=== PATIENT | male | born 1930 | race Two or more races ===

== ENCOUNTER 2017-06-18 06:43 | Inpatient (IN) | payer MEDICARE, OTHER ==
[~2017-06-18] VITALS: Ht 172.7 cm; Wt 83.5 kg
--- NOTE | 2017-06-18 06:50 | NUR ---
PATIENT RECEIVED FROM EMS ([facility]) WITH ALTERED MENTAL STATUS. A/O X1 NOT ABLE TO MAKE NEEDS KNOWN. ACCORDING TO EMS THIS IS HIS BASELINE STILL. NO PAIN OR SOB NOTED UPON ASSESSMENT. BLOOD DRAW DONE. WILL CONTINUE TO MONITOR FOR ANY CHANGES
[2017-06-18 07:10] LABS: EOSINOPHILS # (AUTO) 0.4 /CMM (0.0-0.7); EOSINOPHILS % (AUTO) 3.8 % (0.0-6.0); HEMATOCRIT 41 % (39-51); HEMOGLOBIN 13.2 g/dL (13.5-17.5); LYMPHOCYTES # (AUTO) 0.7 /CMM (0.8-4.8); LYMPHOCYTES % (AUTO) 6.2 % (20.0-44.0); MEAN CORPUSCULAR HEMOGLOBIN 31 PG (26.0-33.0); MEAN CORPUSCULAR HGB CONC 32 g/dl (31.0-36.0); MEAN CORPUSCULAR VOLUME 95 fL (80-96); MONOCYTES # (AUTO) 0.2 /CMM (0.1-1.30); MONOCYTES % (AUTO) 2.2 % (2.0-12.0); NEUTROPHILS % (AUTO) 87.8 % (43.0-81.0); PLATELET COUNT (AUTO) 185 /CMM (150-450); RDW COEFFICIENT OF VARIATION 15.6 (11.5-15.0); RED BLOOD CELL COUNT(AUTO) 4.31 MIL/uL (4.5-6.0); WHITE BLOOD COUNT (AUTO) 11.4 K/uL (4.3-11.0)
--- NOTE | 2017-06-18 07:12 | NUR ---
PT LEFT FOR CAT SCAN
--- NOTE | 2017-06-18 07:23 | NUR ---
PATIENT RECEIVED BACK FROM CAT SCAN
[2017-06-18 07:28] LABS: INR 0.96 (0.87-1.13); SERUM AMMONIA 25 umol/L (11-32)
[2017-06-18 07:30] LABS: CALCIUM, SERUM 9.8 mg/dL (8.5-10.1); CARBON DIOXIDE 35 mmol/L (21-32); CHLORIDE 111 mmol/L (98-107); CREATININE 1.6 mg/dL (0.6-1.3); GLUCOSE 176 mg/dL (74-106); POTASSIUM 4.3 mmol/L (3.5-5.1); SODIUM SERUM 153 mmol/L (136-145); UREA NITROGEN, BLOOD 67 mg/dL (7-18)
--- NOTE | 2017-06-18 07:32 | NUR ---
REPORT GIVEN TO NAMITA
[2017-06-18 07:35] LABS: TROPONIN I 0.037 ng/mL (0.00-0.056)
[2017-06-18 07:38] LABS: ALANINE AMINOTRANSFERASE 23 U/L (12-78); ALBUMIN 2.7 g/dL (3.4-5.0); ALKALINE PHOSPHATASE 122 U/L (46-116); ASPARTATE AMINOTRANSFERASE 30 U/L (15-37); BILIRUBIN,DIRECT 0.1 mg/dL (0.0-0.2); BILIRUBIN,TOTAL 0.3 mg/dL (0.2-1.0); TOTAL PROTEIN, SERUM 8.8 g/dL (6.4-8.2)
[2017-06-18 07:40] LABS: ACETAMINOPHEN < 10 ug/ml (10-30); SALICYLATE 1.5 mg/dL (2.8-20.0)
[2017-06-18] MEDS ORDERED: ACET650S26 GT (07:45)
[2017-06-18] MEDS ORDERED: NA P133E RC (07:45)
[2017-06-18] MEDS ORDERED: NUT.237L30 GT (07:45)
[2017-06-18] MEDS ORDERED: POTA20LI4 GT (07:45)
[2017-06-18] MEDS ORDERED: MAGN400O6 GT (07:45)
[2017-06-18] MEDS ORDERED: BLOO-668 IN (07:45)
[2017-06-18] MEDS ORDERED: AMLO5TAB2 GT (07:45)
[2017-06-18] MEDS ORDERED: MULT1TAB11 GT (07:45)
[2017-06-18] MEDS ORDERED: BISA10SU8 RC (07:45)
[2017-06-18] MEDS ORDERED: INSU100V3 SQ (07:45)
[2017-06-18] MEDS ORDERED: ALLA266C2 TP (07:45)
[2017-06-18] MEDS ORDERED: FURO20TA4 GT (07:45)
[2017-06-18] MEDS ORDERED: LOSA25TA13 GT (07:45)
[2017-06-18] MEDS ORDERED: ASCO500S2 GT (07:45)
[2017-06-18] MEDS ORDERED: IV NS 0.9% 500 ML BAG IV ONE (08:00)
[2017-06-18 09:08] LABS: THYROID STIMULATING HORMONE 2.842 uIU/mL (0.358-3.74)
[2017-06-18 10:10] LABS: APPEARANCE,URINE DARK YELLOW (CLEAR); COLOR,URINE YELLOW (YELLOW)
[2017-06-18 10:11] LABS: BILIRUBIN,URINE NEGATIVE (NEGATIVE); BLOOD, URINE 2+ Ery/uL (NEGATIVE); KETONES,URINE NEGATIVE (NEGATIVE); LEUKOCYTE ESTERASE ,URINE 3+ (NEGATIVE); NITRITE, URINE NEGATIVE (NEGATIVE); PROTEIN,URINE 1+ mg/dl (NEGATIVE); UGLUCOSE NEGATIVE (NEGATIVE); UROBILINOGEN,URINE 0.2 EU/dL (0.2)
[2017-06-18 10:13] LABS: BACTERIA,URINE Few /HPF (None Seen); SQUAMOUS EPITHELIAL CELL,UR Few /HPF (None Seen); WBC,URINE TOO NUMEROUS TO COUN /HPF (0-3)
--- NOTE | 2017-06-18 10:20 | NUR ---
PANEL ON-CALL PAGED
[2017-06-18] MEDS ORDERED: CEFTRIAXONE 1GM BAG (ER ONLY) 1 GM/50 ML PIGGYBACK IV ONE (10:30)
--- NOTE | 2017-06-18 11:00 | NUR ---
PT TRANSPORTED TO TELE USING ACLS PROTOCOL
--- NOTE | 2017-06-18 11:46 | NUR ---
MS RN ADMITTING NOTES PT ADMITTED TO UNIT AT 1105H VIA GURNEY ACCOMPANIED BY NAMITA ER NURSE. TRANSFERRED TO BED GENTLY AND COMFORTABLY. HOB ELEVATED. ALERT AND ORIENTED X1, CONFUSED. ON ROOM AIR, BREATHING EVEN AND UNLABORED. 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 V/S TAKEN AND RECORDED. PHOTOS OF SKIN TAKEN AND FILED ON CHART. PT HAS IV ACCESS ON LEFT FA G#18 INTACT AND PATENT. PT NPO WITH G-TUBE IN PLACED AND PATENT FR#18, WILL RE-START G-TUBE FEEDING ON HIM. ASPIRATION PRECAUTIONS ENFORCED. PT WITH GARCIA CATHETER IN PLACED DRAINING CLOUDY YELLOW URINE TO BEDSIDE URINARY BAG. BED PLACED ON LOW, LOCKED POSITION WITH SIDE-RAILS UP X3. CALL LIGHT WITHIN REACH. ALL SAFETY PRECAUTIONS INITIATED. MD MADE AWARE OF ADMISSION. WILL CONTINUE TO MONITOR PT ACCORDINGLY.
[2017-06-18] MEDS ORDERED: ACETAMINOPHEN 325 MG TABLET PO PRN (13:00)
[2017-06-18] MEDS ORDERED: ACETAMINOPHEN 650 MG/20.3 ML UDC GT PRN (13:00)
[2017-06-18] MEDS ORDERED: BISACODYL SUPP (10 MG) 10 MG/SUPP.RECT SUPP.RECT RC PRN (13:00)
[2017-06-18] MEDS ORDERED: ZOLPIDEM TARTRATE 5 MG TABLET PO PRN (13:00)
[2017-06-18] MEDS ORDERED: MAGNESIUM HYDROXIDE 30 ML UDC PO PRN (13:00)
[2017-06-18] MEDS ORDERED: Z GUARD REMEDY 2 OZ OINT TP PRN (13:00)
[2017-06-18] MEDS ORDERED: INSULIN REGULAR, HUMAN 100 UNIT/ML 3 ML VIAL SQ PRN (13:00)
[2017-06-18] MEDS ORDERED: ONDANSETRON HCL/PF 4 MG/2 ML VIAL IVP PRN (13:00)
[2017-06-18] MEDS ORDERED: MAGNESIUM HYDROXIDE 30 ML UDC GT PRN (13:00)
[2017-06-18] MEDS ORDERED: IV NS 0.9% 1,000 ML IV ONE (13:00)
[2017-06-18] MEDS ORDERED: ZOLPIDEM TARTRATE 5 MG TABLET GT PRN (13:00)
[2017-06-18] MEDS ORDERED: HYDROCODONE/APAP 5/325MG 1 EACH TABLET PO PRN (13:00)
[2017-06-18] MEDS ORDERED: NA PHOS,M-B/NA PHOS,DI-BA 1 EA ENEMA RC PRN (13:00)
[2017-06-18] MEDS ORDERED: MAG HYDROX/AL HYDROX/SIMETH 30 ML UDC GT PRN (13:00)
[2017-06-18] MEDS ORDERED: DEXTROSE 50%-WATER 50 ML DISP.SYRIN IV PRN (14:00)
[2017-06-18] MEDS: ENOXAPARIN SODIUM 30 MG/0.3 ML DISP.SYRIN SQ SCH (14:45)
[2017-06-18] MEDS: GLYTROL 1,000 ML BAG GT SCH (15:02)
[2017-06-18] MEDS: CEFTRIAXONE 1 G in IV D5W 50 ML IV SCH (15:07)
[2017-06-18] MEDS ORDERED: BLOOD SUGAR DIAGNOSTIC 1 EACH STRIP IN SCH (17:00)
[2017-06-18] MEDS: INSULIN REGULAR, HUMAN 100 UNIT/ML 3 ML VIAL SQ PRN (18:12)
[2017-06-18] MEDS: BLOOD SUGAR DIAGNOSTIC 1 EACH STRIP IN SCH (18:12)
--- NOTE | 2017-06-18 18:39 | NUR ---
MS RN CLOSING NOTES PT IN BED LYING @ MODERATE HIGH BACKREST. ALERT X1, RESPONSIVE TO TACTILE AND VERBAL STIMULI BUT CONFUSED. ALL NEEDS AND CARE PROVIDED WELL. ON ROOM AIR, BREATHING EVEN WITH NO SOB NOTED. IV ACCESS ON LEFT FA G#18 INTACT AND PATENT WITH NS @ 100ML/HR INFUSING WELL, NO S/S OF INFILTRATION NOTED. PT IS NPO WITH G-TUBE FEEDING OF GLYTROL @ 80ML/HR, TOLERATING WELL. ASPIRATION PRECAUTIONS MAINTAINED. PT WITH GARCIA CATHETER IN PLACED DRAINING CLOUDY YELLOW URINE TO BEDSIDE URINARY BAG. KEPT BED ON LOW, LOCKED POSITION WITH SIDE-RAILS UP X3. CALL LIGHT WITHIN REACH. ALL SAFETY PRECAUTIONS MAINTAINED. WILL ENDORSED TO CREW LEADER/CONTROL ROOM OPERATOR NURSE FOR YINA.
--- NOTE | 2017-06-18 19:45 | NUR ---
ADDENDUM PT HAS GT IN PLACE RUNNING WITH GLYTROL @ 80 ML/HR. RESIDUAL, PATENCY & PLACEMENT CHECKED. FOLLOWING ASPIRATION PRECAUTIONS.
--- NOTE | 2017-06-18 19:45 | NUR ---
MS RN OPENING NOTES RECEIVED PATIENT IN BED, IN MODERATE SEMI ELIZABETH POSITION. A & O X 1, CONFUSED & BED BOUND. RESP EVEN & NON LABORED,@ RA. NO S/S ON PAIN NOTED @ THIS TIME. ON GTF GLYTROL @ 80ML/HR. IV ACCESS TO LFA, INTACT PATENT, RUNNING WITH NS @ 100 ML/HR. GARCIA CATH IN PLACE FLOWING WITH YELLOW CLOUDY URINE. BED IN LOWEST LOCKED POSITION. CALL LIGHT WITHIN REACH. WILL OBSERVE CLOSELY.
[2017-06-18 20:00] VITALS: BP 120/60
[2017-06-18 22:26] VITALS: BP 120/60
[2017-06-19] MEDS: BLOOD SUGAR DIAGNOSTIC 1 EACH STRIP IN SCH ×5 (00:26→23:22)
[2017-06-19] MEDS: INSULIN REGULAR, HUMAN 100 UNIT/ML 3 ML VIAL SQ PRN ×4 (00:34→23:24)
[2017-06-19] MEDS: GLYTROL 1,000 ML BAG GT SCH ×2 (04:55→19:19)
--- NOTE | 2017-06-19 06:47 | NUR ---
MS RN CLOSING NOTES RECEIVED SLEPT WELL @ NIGHT, IN MODERATE SEMI ELIZABETH POSITION. A & O X 1, CONFUSED & BED REST RESP EVEN & NON LABORED,@ RA. NO S/S ON PAIN NOTED THROUGH THE SHIFT. ON GTF GLYTROL @ 80ML/HR. IV ACCESS TO LFA, SL, INTACT PATENT. GARCIA CATH IN PLACE FLOWING WITH YELLOW CLOUDY URINE. REPOSITIONED IN BED PER PROTOCOL. ALL NEEDS MET. KEPT CLEAN & DRY. BED IN LOWEST LOCKED POSITION. CALL LIGHT WITHIN REACH. WILL OBSERVE CLOSELY.
--- NOTE | 2017-06-19 06:59 | NUR ---
CLOSING NOTES WILL ENDORSE CONTINUITY OF ACRE TO AM RN.
--- NOTE | 2017-06-19 07:00 | NUR ---
RN NOTES: PATIENT AOX1 , CONFUSED, VERBAL, SMILING. NO FACIAL GRIMACING. NONLABORED BREATHING NOTED ON ROOM AIR. NO SIGNS OF DISTRESS. IV SITE PATENT AND INTACT. WILL CONTINUE TO MONITOR
[2017-06-19 07:48] LABS: BASOPHILS % (AUTO) 0.3 % (0.0-2.0); EOSINOPHILS # (AUTO) 0.3 /CMM (0.0-0.7); EOSINOPHILS % (AUTO) 3.7 % (0.0-6.0); HEMATOCRIT 35 % (39-51); HEMOGLOBIN 11.5 g/dL (13.5-17.5); LYMPHOCYTES # (AUTO) 0.6 /CMM (0.8-4.8); LYMPHOCYTES % (AUTO) 9.1 % (20.0-44.0); MEAN CORPUSCULAR HEMOGLOBIN 31 PG (26.0-33.0); MEAN CORPUSCULAR HGB CONC 33 g/dl (31.0-36.0); MEAN CORPUSCULAR VOLUME 95 fL (80-96); MONOCYTES # (AUTO) 0.4 /CMM (0.1-1.30); MONOCYTES % (AUTO) 5.4 % (2.0-12.0); NEUTROPHILS # (AUTO) 5.7 /CMM (1.8-8.9); NEUTROPHILS % (AUTO) 81.5 % (43.0-81.0); PLATELET COUNT (AUTO) 157 /CMM (150-450); RDW COEFFICIENT OF VARIATION 15.8 (11.5-15.0); RED BLOOD CELL COUNT(AUTO) 3.68 MIL/uL (4.5-6.0)
[2017-06-19 08:00] VITALS: BP 131/76
[2017-06-19 08:19] LABS: CALCIUM, SERUM 9.1 mg/dL (8.5-10.1); CARBON DIOXIDE 30 mmol/L (21-32); CHLORIDE 119 mmol/L (98-107); CREATININE 1.3 mg/dL (0.6-1.3); GLUCOSE 188 mg/dL (74-106); MAGNESIUM 2.9 mg/dL (1.8-2.4); PHOSPHORUS 3.6 mg/dL (2.5-4.9); POTASSIUM 3.9 mmol/L (3.5-5.1); UREA NITROGEN, BLOOD 54 mg/dL (7-18)
[2017-06-19 08:21] LABS: CHOLESTEROL 141 mg/dL (<200); HDL CHOLESTEROL 33 mg/dL (40-60); LDL 93 mg/dL (0-99); TRIGLYCERIDES 100 mg/dL (30-150)
[2017-06-19 08:22] LABS: SODIUM SERUM 157 mmol/L (136-145)
--- NOTE | 2017-06-19 08:40 | NUR ---
RN NOTES DR STAFFORD AWARE OF PATIENT'S LABS FOR TODAY. NO NEW ORDERS AT THE MOMENT
[2017-06-19] MEDS ORDERED: ASCORBIC ACID SYRUP 500 MG/5 ML UDC GT SCH (09:00)
[2017-06-19] MEDS: AMLODIPINE BESYLATE 5 MG TABLET GT SCH (09:00)
[2017-06-19] MEDS: LOSARTAN POTASSIUM 25 MG TABLET GT SCH (09:00)
[2017-06-19] MEDS: POTASSIUM CHLORIDE 20 MEQ POWDER PACKET GT SCH (09:47)
[2017-06-19] MEDS: FUROSEMIDE 20 MG TABLET GT SCH (09:48)
[2017-06-19] MEDS: MULTIVIT, IRON, MIN NO. 8, FA 1 TAB GT SCH (09:48)
[2017-06-19] MEDS: ASCORBIC ACID 500 MG TABLET GT SCH (09:49)
[2017-06-19] MEDS: ENOXAPARIN SODIUM 30 MG/0.3 ML DISP.SYRIN SQ SCH (10:06)
--- NOTE | 2017-06-19 10:07 | NUR ---
WOUND CARE CONSULT: PT PRESENTS WITH FRAGILE DRY SKIN. SACRAL SCAR NOTED. PT HAS G TUBE AND GARCIA CATH. ALL SKIN PROTECTION MEASURES IN PLACE AND DISCUSSED WITH NURSING STAFF. CURRENT CORINA SCORE IS 14. WILL SEE PRN. NANCE IN AGREEMENT WITH PLAN OF CARE. Addendum: 06/19/17 at 1009 by BALJIT SHAFFER WNDNU Amended: Links added.
[2017-06-19] MEDS ORDERED: MINERAL OIL/PETROLATUM,WHITE 120 GM JAR TP PRN (10:30)
--- NOTE | 2017-06-19 10:32 | NUR ---
RN NOTES: FREE WATER FLUSHES 200 ML/HOUR EVERY [address] STAFFORD AND MONORAIL CAR OPERATOR RECOMMENDATION
[2017-06-19 12:56] VITALS: BP 136/66
[2017-06-19] MEDS: IV D5/0.45 NACL 1,000 ML IV PRN (14:00)
[2017-06-19] MEDS: CEFTRIAXONE 1 G in IV D5W 50 ML IV SCH (15:55)
[2017-06-19 16:00] VITALS: BP 136/69
--- NOTE | 2017-06-19 19:15 | NUR ---
RN NOTES: PATIENT AOX1 , CONFUSED, VERBAL, SMILING. NO FACIAL GRIMACING. NONLABORED BREATHING NOTED ON ROOM AIR. NO SIGNS OF DISTRESS. IV SITE PATENT AND INTACT. DURING SHIFT, SPOKE WITH PATIENT'S WHO STATED THE FAMILY'S WISH FOR THE PATIENT TO BE DNR/DNI WITH SELECTIVE MEDICAL TREATMENT. DR STAFFORD NOTIFIED. A COPY OF POLST WAS PLACED IN THE CHART SO THAT DR STAFFORD CAN SIGN IT WITH THE FAMILY TOMORROW PER HIS ORDERS. GTUBE FEEDING TOLERATED WELL. PATIENT TURNED AND REPOSITIONED DURING SHIFT, KEPT CLEAN AND DRY. ENDORSED TO NEXT SHIFT
--- NOTE | 2017-06-19 19:40 | NUR ---
RN INITIAL NOTES: RECEIVED REPORT FROM DAY SHIRA GREGG PT IN BED, AWAKE, A/O X1 ONLY, DOES NOT COMMUNICATE MUCH TO RN BUT ABLE TO CREATE SOUND/SPEECH THAT HAS NO MEANING. PT HAS GTUBE IN PLACED CURRENTLY RECEIVING FEEDING OF GLYROL ULTRAPAK AT 80ML/HR X20HR, NEEDS TO BE TURN OFF AT 0100AM, AND TURN ON AT 0500AM. PT HAS OWN HEEL PROTECTOR. BLE OFFLOADED. SAFETY PRECAUTIONS FOR FALL INITIATED CALL LIGHT IN REACH, WILL CONTINUE TO MONITOR
[2017-06-19 20:00] VITALS: BP 148/81
--- NOTE | 2017-06-19 20:31 | NUR ---
RN NOTES: PT SON SATNAM BONNER CAME TO VISIT, INFORMED ABOUT PT'S PLAN OF CARE, ALSO CLARIFIED ABOUT PT;'S CODE STATUS, HE STATED HE WILL TALK TO HIS MOM REGARDING CODE STATUS FOR THE PT, HIS MOM WAS THE DPOA/ADVANCE DIRECTIVE, PHONE NUMBERS ON FILE, PER SON HE PREFERRED HIS FATHER TO BE FULL CODE, BUT WILL STILL TALK TO HIS MOM.
--- NOTE | 2017-06-19 20:32 | NUR ---
RN NOTES: PER PATIENT'S FAMILY, DO NOT GIVE MORPHINE OR AMBIEN TO THE PT. WILL RELAY TO DAY RN
--- NOTE | 2017-06-19 21:00 | NUR ---
RN NOTES: PT CODE STATUS IS UNCLEAR, THERE'S DNI ON THE PREVIOUS CHARTING/DOCUMENTATION UPON ADMISSION, BUT THERE'S NO CODE STATUS ORDER FROM MD, AWAITING PT'S FAMILY DECISION, TAX SERVICES MANAGER AWARE, PLACE PT ON FULL CODE, MACHINE DEBURRER EPIC MD AWARE
--- NOTE | 2017-06-19 22:10 | NUR ---
FREE WATER FLUSH: 200 ML OF FREE WATER FLUSH GIVEN VIA GTUBE ORDERED.
--- NOTE | 2017-06-19 23:26 | NUR ---
BLOOD SUGAR CHECK: BLOOD SUGAR CHECK PERFORMED AND OBTAINED RESULT OF 174, 3UNITS OF INSULIN GIVEN PER SLIDING SCALE, PT ON GTUBE FEEDING, WILL MONITOR PT FOR ANY S/S OF HYPOGLYCEMIA
--- NOTE | 2017-06-20 01:00 | NUR ---
RN NOTES: TURNED OFF TUBE FEEDING AT THIS TIME, WILL RESTART AGAIN AT 0500AM. ORDERED FOR GLYTROL ULTRAPAK 80CC/HR X20HR ONLY.
[2017-06-20] MEDS: IV D5/0.45 NACL 1,000 ML IV PRN ×2 (03:51→21:30)
--- NOTE | 2017-06-20 05:06 | NUR ---
RN NOTES: FREE WATER FLUSH OF 200ML ADMINISTERED VIA GTUBE ORDERED
[2017-06-20] MEDS: BLOOD SUGAR DIAGNOSTIC 1 EACH STRIP IN SCH ×4 (05:30→23:57)
[2017-06-20] MEDS: INSULIN REGULAR, HUMAN 100 UNIT/ML 3 ML VIAL SQ PRN ×3 (05:33→17:07)
[2017-06-20] MEDS: GLYTROL 1,000 ML BAG GT SCH ×2 (05:34→21:30)
--- NOTE | 2017-06-20 05:36 | NUR ---
BLOOD SUGAR AND FEEDING BAG: BLOOD SUGAR CHECK PERFORMED AND OBTAINED RESULT OF 157, 2UNITS OF INSULIN GIVEN PER SLIDING SCALE. PT WILL BE BACK ON GTUBE FEEDING SCHEDULE. GLYTROL ULTRAPAK UNABLE TO SCAN BARCODE: ONLY 1000ML BAG OF GLYTROL ULTRAPAK AVAILABLE, SAME ISSUE HAPPENED YESTERDAY WHEN DAY RN CRISTINO ADMINISTERED FEEDING BAG. ORDER IS GLYTROL AT 80ML/HR X20HR. NEW BAG ADMINISTERED BECAUSE ITS ALREADY 4HRS PASSED (FEEDING WAS TURNED OFF AT 0100AM, WILL BE TURN ON NOW AT 0500AM), TO PREVENT ANY INFECTION OR CONTAMINATION, FROM NURSING PERSPECTIVE TO ADMINISTER NEW BAG OF FEEDING.
--- NOTE | 2017-06-20 06:56 | NUR ---
RN CLOSING NOTES: PT IN BED, REMAINS A/O X1, ON RA, NO SOB NOTED, NO FACIAL GRIMACE NOTED, APPEARS CALM AND COMFORTABLE, IV ACCESS REMAINS PATENT AND FLUSHING WELL, WITH ONGOING IVF ORDERED. REMAINS ON GTUBE FEEDING. HOB 30 DEGREE. BLE KEPT OFFLOADED ON PILLOWS. VSS. AWAITING FAMILY DECISION FOR CODE STATUS, DIVISION ROADMASTER AWARE AND MD AWARE. NEEDS ATTENDED. SAFETY PRECAUTIONS FOR FALL REMAINS ENGAGED, CALL LIGHT IN REACH, WILL ENDORSE TO DAY RN FOR YINA.
--- NOTE | 2017-06-20 07:35 | NUR ---
MS RN OPENING NOTES RECEIVED PATIENT IN STABLE CONDITION. IN NO APPARENT DISTRESS. PATIENT IS RESTING IN BED. BEDSIDE RAILS ARE UP X2. BED IS LOCKED AND LOWERED. CALL LIGHT IS WITHIN REACH. WILL CONTINUE TO MONITOR.
[2017-06-20 08:00] VITALS: BP 111/54
[2017-06-20] MEDS: AMLODIPINE BESYLATE 5 MG TABLET GT SCH (09:00)
[2017-06-20] MEDS: LOSARTAN POTASSIUM 25 MG TABLET GT SCH (09:00)
[2017-06-20 09:04] LABS: BASOPHILS % (AUTO) 0.3 % (0.0-2.0); EOSINOPHILS # (AUTO) 0.2 /CMM (0.0-0.7); EOSINOPHILS % (AUTO) 4.2 % (0.0-6.0); HEMATOCRIT 35 % (39-51); HEMOGLOBIN 11.4 g/dL (13.5-17.5); LYMPHOCYTES # (AUTO) 0.8 /CMM (0.8-4.8); LYMPHOCYTES % (AUTO) 14.3 % (20.0-44.0); MEAN CORPUSCULAR HEMOGLOBIN 31 PG (26.0-33.0); MEAN CORPUSCULAR HGB CONC 32 g/dl (31.0-36.0); MEAN CORPUSCULAR VOLUME 95 fL (80-96); MONOCYTES # (AUTO) 0.3 /CMM (0.1-1.30); MONOCYTES % (AUTO) 5.4 % (2.0-12.0); NEUTROPHILS # (AUTO) 4.4 /CMM (1.8-8.9); NEUTROPHILS % (AUTO) 75.8 % (43.0-81.0); PLATELET COUNT (AUTO) 165 /CMM (150-450); RDW COEFFICIENT OF VARIATION 14.9 (11.5-15.0); RED BLOOD CELL COUNT(AUTO) 3.69 MIL/uL (4.5-6.0); WHITE BLOOD COUNT (AUTO) 5.9 K/uL (4.3-11.0)
[2017-06-20 09:11] LABS: CARBON DIOXIDE 30 mmol/L (21-32); CHLORIDE 116 mmol/L (98-107); CREATININE 1.2 mg/dL (0.6-1.3); GLUCOSE 199 mg/dL (74-106); POTASSIUM 3.7 mmol/L (3.5-5.1); SODIUM SERUM 152 mmol/L (136-145); UREA NITROGEN, BLOOD 36 mg/dL (7-18)
[2017-06-20] MEDS: MULTIVIT, IRON, MIN NO. 8, FA 1 TAB GT SCH (09:57)
[2017-06-20] MEDS: ASCORBIC ACID 500 MG TABLET GT SCH (09:58)
[2017-06-20] MEDS: FUROSEMIDE 20 MG TABLET GT SCH (09:58)
[2017-06-20] MEDS: POTASSIUM CHLORIDE 20 MEQ POWDER PACKET GT SCH (09:59)
[2017-06-20] MEDS: ASPIRIN EC 81 MG TABLET.DR PO SCH (10:05)
[2017-06-20] MEDS: ENOXAPARIN SODIUM 30 MG/0.3 ML DISP.SYRIN SQ SCH (10:33)
[2017-06-20] MEDS: CEFTRIAXONE 1 G in IV D5W 50 ML IV SCH (13:57)
[2017-06-20] MEDS ORDERED: LEVOFLOXACIN 500 MG /D5W 100ML 500 MG in PREMIX 1 EA IV ONE (15:00)
[2017-06-20 16:00] VITALS: BP 125/59
--- NOTE | 2017-06-20 18:46 | NUR ---
MS RN CLOSING NOTES PATIENT IS IN STABLE CONDITION. IN NO APPARENT DISTRESS. BEDSIDE RAILS ARE UP X2. BED IS LOCKED AND LOWERED. ALL NEEDS WERE MET. CALL LIGHT IS WITHIN REACH. WILL ENDORSE CARE TO LAP CUTTER TRUER OPERATOR NURSE FOR YINA.
--- NOTE | 2017-06-20 19:30 | NUR ---
MS RN OPENING NOTES RECEIVED PT AWAKE.ON ROOM AIR,NO SOB,NO APPARENT DISTRESS NOTED. NO S/SX OF PAIN OR DISCOMFORT NOTED. IV SITE RT WRIST INTACT,PATENT,NO S/SX OF INFILTRATION NOTED. GT IN PLACE, TOLERATES GTF WELL, HOB ELEVATED. F/C IN PLACE DRAINING YELLOW COLOR URINE. KEPT CLEAN AND COMFORTABLE, ATTENDED ALL NEEDS.CALL LIGHT WITHIN REACH.WILL CONTINUE TO MONITOR ACCORDINGLY
[2017-06-20 20:00] VITALS: BP 120/67
[2017-06-20] MEDS ORDERED: ATORVASTATIN 10 MG TABLET PO SCH (22:00)
[2017-06-20 23:25] VITALS: BP 120/67
[2017-06-21] MEDS: INSULIN REGULAR, HUMAN 100 UNIT/ML 3 ML VIAL SQ PRN ×2 (00:04→06:20)
[2017-06-21] MEDS: BLOOD SUGAR DIAGNOSTIC 1 EACH STRIP IN SCH (06:14)
--- NOTE | 2017-06-21 06:35 | NUR ---
MS CLOSING NOTES PT IN BED AWAKE, ON ROOM AIR NO APPARENT DISTRESS NOTED. ON GT FEEDING GLYTROL AT 80ML/HR,TOLERATES WELL,HOB ELEVATED. BLOOD GLUCOSE 158 ADMINISTERED 2 UNITS HUMULIN R ORDERED. PER SLIDING .KEPT CLEAN AND COMFORTABLE.NO S/SX OF PAIN OR DISCOMFORT NOTED. ATTENDED ALL NEEDS WILL CONTINUE TO MONITOR ACCORDINGLY
[2017-06-21] MEDS: IV D5/0.45 NACL 1,000 ML IV PRN (07:18)
[2017-06-21 07:36] LABS: BASOPHILS % (AUTO) 0.3 % (0.0-2.0); EOSINOPHILS # (AUTO) 0.2 /CMM (0.0-0.7); EOSINOPHILS % (AUTO) 3.6 % (0.0-6.0); HEMATOCRIT 35 % (39-51); HEMOGLOBIN 11.5 g/dL (13.5-17.5); LYMPHOCYTES % (AUTO) 15.8 % (20.0-44.0); MEAN CORPUSCULAR HEMOGLOBIN 31 PG (26.0-33.0); MEAN CORPUSCULAR HGB CONC 33 g/dl (31.0-36.0); MEAN CORPUSCULAR VOLUME 94 fL (80-96); MONOCYTES # (AUTO) 0.3 /CMM (0.1-1.30); MONOCYTES % (AUTO) 5.1 % (2.0-12.0); NEUTROPHILS # (AUTO) 4.9 /CMM (1.8-8.9); NEUTROPHILS % (AUTO) 75.2 % (43.0-81.0); PLATELET COUNT (AUTO) 160 /CMM (150-450); RED BLOOD CELL COUNT(AUTO) 3.67 MIL/uL (4.5-6.0); WHITE BLOOD COUNT (AUTO) 6.5 K/uL (4.3-11.0)
[2017-06-21 07:52] LABS: CALCIUM, SERUM 8.5 mg/dL (8.5-10.1); CARBON DIOXIDE 27 mmol/L (21-32); CHLORIDE 113 mmol/L (98-107); GLUCOSE 194 mg/dL (74-106); POTASSIUM 3.7 mmol/L (3.5-5.1); SODIUM SERUM 146 mmol/L (136-145); UREA NITROGEN, BLOOD 30 mg/dL (7-18)
[2017-06-21 08:00] VITALS: BP 133/89
[2017-06-21 09:01] VITALS: BP 133/89
[2017-06-21] MEDS: AMLODIPINE BESYLATE 5 MG TABLET GT SCH (09:01)
[2017-06-21] MEDS: FUROSEMIDE 20 MG TABLET GT SCH (09:01)
[2017-06-21] MEDS: LOSARTAN POTASSIUM 25 MG TABLET GT SCH (09:01)
[2017-06-21] MEDS: ASPIRIN EC 81 MG TABLET.DR PO SCH (09:01)
[2017-06-21] MEDS: MULTIVIT, IRON, MIN NO. 8, FA 1 TAB GT SCH (09:01)
[2017-06-21] MEDS: POTASSIUM CHLORIDE 20 MEQ POWDER PACKET GT SCH (09:02)
[2017-06-21] MEDS: ASCORBIC ACID 500 MG TABLET GT SCH (09:03)
[2017-06-21] MEDS ORDERED: LEVO500T75 PO (09:04)
[2017-06-21] MEDS: ENOXAPARIN SODIUM 30 MG/0.3 ML DISP.SYRIN SQ SCH (09:18)
--- NOTE | 2017-06-21 10:49 | NUR ---
GAVE REPORT TO [facility] Addendum: 06/21/17 at 1058 by MARYA RYAN RN SHIRA PEREZ WAS THE NURSE I GAVE THE REPORT.
--- NOTE | 2017-06-21 12:30 | NUR ---
PATIENT DISCHARGED IN STABLE CONDITION TO [facility]. PATIENT IS IN NO APPARENT DISTRESS. PATIENT PICKED UP VIA AMBULANCE. REPORT GIVEN TO PARAMEDICS. IV LINE DISCONTINUED AND PATIENT IDENTIFIERS REMOVED.
[2017-06-21] MEDS ORDERED: LEVOFLOXACIN 250 MG /D5W 50 ML 250 MG in PREMIX 1 EA IV SCH (15:00)
== END 2017-06-21 12:45 | DRG 682 ==
LOC: ER 06:48 → UNDOADMIN 10:35 → TELE 10:35 → UNDODISIN 10:45 → MED 10:55 → TELE 10:55 → ER 11:02 → MED 13:00
PROVIDERS: ADMIT Family Medicine; ATTEND Family Medicine
DX: N17.0 Acute kidney failure with tubular necrosis (principal); G93.41 Metabolic encephalopathy; E44.0 Moderate protein-calorie malnutrition; E87.0 Hyperosmolality and hypernatremia; E11.22 Type 2 diabetes mellitus with diabetic chronic kidney disease; E11.65 Type 2 diabetes mellitus with hyperglycemia; E88.09 Other disorders of plasma-protein metabolism, not elsewhere classified; R13.10 Dysphagia, unspecified; N39.0 Urinary tract infection, site not specified; D72.829 Elevated white blood cell count, unspecified; S40.021A Contusion of right upper arm, initial encounter; G30.9 Alzheimer's disease, unspecified; F02.80 Dementia in other diseases classified elsewhere, unspecified severity, without behavioral disturbance, psychotic disturbance, mood disturbance, and anxiety; N18.9 Chronic kidney disease, unspecified; I69.820 Aphasia following other cerebrovascular disease; E86.9 Volume depletion, unspecified; Z66 Do not resuscitate; B96.5 Pseudomonas (aeruginosa) (mallei) (pseudomallei) as the cause of diseases classified elsewhere; Z68.28 Body mass index [BMI] 28.0-28.9, adult; S40.022A Contusion of left upper arm, initial encounter; X58.XXXA Exposure to other specified factors, initial encounter; Y93.9 Activity, unspecified; Y92.129 Unspecified place in nursing home as the place of occurrence of the external cause; Z93.1 Gastrostomy status; R21 Rash and other nonspecific skin eruption; L98.8 Other specified disorders of the skin and subcutaneous tissue; D64.9 Anemia, unspecified
CPT/HCPCS: 36415; 70450-TC; 71010-TC; 80048-TC; 80061-TC; 80076-TC; 81000-TC; 82140-TC; 82962-TC; 83605-TC; 83735-TC; 84100-TC; 84443-TC; 84484-TC; 85025-TC; 85730-TC; 87040-TC; 87081-TC; 87086-TC; 87186-TC; A4216; G0480; J0696; J1650; J1815; J1956; J3490; J7030; J7050; J7060

== ENCOUNTER 2017-08-15 00:49 | Inpatient (IN) | payer MEDICARE, OTHER ==
[~2017-08-15] VITALS: Ht 182.9 cm; Wt 82.1 kg
[~2017-08-15 00:49] MED LIST: ACET650S26 GT; ALLA266C2 TP; AMLO5TAB2 GT; ASCO500S2 GT; BISA10SU8 RC; BLOO-668 IN; FURO20TA4 GT; INSU100V3 SQ; LEVO500T75 PO; LOSA25TA13 GT; MAGN400O6 GT; MULT1TAB11 GT; NA P133E RC; NUT.237L30 GT; POTA20LI4 GT
--- NOTE | 2017-08-15 00:52 | NUR ---
PT TO ER BED 5. PT BIB RA FROM SNF C/O "PT MORE ALTERED THEN USUAL". PT PLACED IN GOWN AND ON ART MUSEUM DOCENT. VSS/RESP EVEN UNLABORED/NAD NOTED/SKIN HOT AND DRY/RECTAL TEMP 102.6 HR 96 B/P 136/67 RESP 20 SAT 95%. AWAITING MD HALE. EMT AT BEDSIDE FOR EKG.
[2017-08-15] MEDS ORDERED: IV NS 0.9% 500 ML BAG IV ONE (01:00)
--- NOTE | 2017-08-15 01:05 | NUR ---
20G IV X 3 ATTEMPTS TO L FA USING ASEPTIC TECH, BLOOD CULT X 2 AND BLOOD HANDED OVER TO THE LAB AT THE BEDSIDE. IV FLUSHES EASILY WITH NS, NO S/S INFILTRATION.
[2017-08-15 01:28] LABS: BASOPHILS % (AUTO) 0.1 % (0.0-2.0); EOSINOPHILS % (AUTO) 0.1 % (0.0-6.0); HEMATOCRIT 42 % (39-51); LYMPHOCYTES # (AUTO) 0.7 /CMM (0.8-4.8); LYMPHOCYTES % (AUTO) 7.2 % (20.0-44.0); MEAN CORPUSCULAR HEMOGLOBIN 32 PG (26.0-33.0); MEAN CORPUSCULAR HGB CONC 33 g/dl (31.0-36.0); MEAN CORPUSCULAR VOLUME 97 fL (80-96); MONOCYTES # (AUTO) 0.4 /CMM (0.1-1.30); MONOCYTES % (AUTO) 3.7 % (2.0-12.0); NEUTROPHILS # (AUTO) 9.1 /CMM (1.8-8.9); NEUTROPHILS % (AUTO) 88.9 % (43.0-81.0); PLATELET COUNT (AUTO) 130 /CMM (150-450); RDW COEFFICIENT OF VARIATION 16.6 (11.5-15.0); RED BLOOD CELL COUNT(AUTO) 4.35 MIL/uL (4.5-6.0); WHITE BLOOD COUNT (AUTO) 10.3 K/uL (4.3-11.0)
--- NOTE | 2017-08-15 01:33 | NUR ---
URINE SPECIMEN OBTAINED FROM F/C AND SENT TO THE LAB.
[2017-08-15 01:42] LABS: APPEARANCE,URINE SL CLOUDY (CLEAR); BILIRUBIN,URINE NEGATIVE (NEGATIVE); BLOOD, URINE 1+ Ery/uL (NEGATIVE); COLOR,URINE YELLOW (YELLOW); KETONES,URINE NEGATIVE (NEGATIVE); LEUKOCYTE ESTERASE ,URINE 3+ (NEGATIVE); NITRITE, URINE POSITIVE (NEGATIVE); PH,URINE 7.5 (5.0-8.0); PROTEIN,URINE 1+ mg/dl (NEGATIVE); UGLUCOSE NEGATIVE (NEGATIVE)
--- NOTE | 2017-08-15 01:45 | NUR ---
PT TO CT VIA STRETCHER. VSS.
[2017-08-15 01:50] LABS: BACTERIA,URINE 2+ /HPF (None Seen); SQUAMOUS EPITHELIAL CELL,UR Few /HPF (None Seen); URINE AMORPHOUS PHOSPHATES Moderate /HPF (None Seen); WBC,URINE 81-100 /HPF (0-3)
[2017-08-15 01:51] LABS: ALANINE AMINOTRANSFERASE 25 U/L (12-78); ALBUMIN 2.8 g/dL (3.4-5.0); ALKALINE PHOSPHATASE 126 U/L (46-116); ASPARTATE AMINOTRANSFERASE 21 U/L (15-37); BILIRUBIN,DIRECT 0.2 mg/dL (0.0-0.2); BILIRUBIN,TOTAL 0.7 mg/dL (0.2-1.0); CALCIUM, SERUM 9.8 mg/dL (8.5-10.1); CARBON DIOXIDE 31 mmol/L (21-32); CHLORIDE 111 mmol/L (98-107); CREATININE 1.4 mg/dL (0.6-1.3); GLUCOSE 155 mg/dL (74-106); POTASSIUM 4.1 mmol/L (3.5-5.1); SODIUM SERUM 151 mmol/L (136-145); TOTAL PROTEIN, SERUM 8.7 g/dL (6.4-8.2); TROPONIN I 0.037 ng/mL (0.00-0.056); UREA NITROGEN, BLOOD 46 mg/dL (7-18)
[2017-08-15] MEDS ORDERED: ACETAMINOPHEN 650 MG/SUPP.RECT RC ONE ×2 (02:00→02:07)
[2017-08-15] MEDS ORDERED: PIPERACILLIN /TAZOBACTAM 3.375 G in IV D5W 50 ML IV ONE (02:00)
[2017-08-15] MEDS ORDERED: PIPERACILLIN /TAZOBACTAM 3.375 G VIAL IV ONE (02:07)
[2017-08-15] MEDS ORDERED: NA PHOS,M-B/NA PHOS,DI-BA 1 EA ENEMA RC PRN (03:00)
[2017-08-15] MEDS ORDERED: ACETAMINOPHEN 650 MG/20.3 ML UDC GT PRN (03:00)
[2017-08-15] MEDS ORDERED: IV NS 0.9% 1,000 ML BAG IV ONE (03:00)
[2017-08-15] MEDS ORDERED: BISACODYL SUPP (10 MG) 10 MG/SUPP.RECT SUPP.RECT RC PRN (03:00)
--- NOTE | 2017-08-15 03:14 | NUR ---
REPORT CALLED TO SHIRA ERAZO FOR YINA.
--- NOTE | 2017-08-15 03:25 | NUR ---
RN NOTE RECEIVED REPORT FROM FAMILY SOCIOLOGIST DERRICK, PATIENT WAS TRANSFERRED VIA GURNEY WITH 3 PEOPLE ASSISST, DAUGHTER AND GRANDSON IS BY BEDSIDE, NO RESPIRATORY DISTRESS, CONFUSED, SR WITH PAC, ROOM AIR 96%, ADMITING DX: UTI/SEPSIS, PICTURES TAKEN, RIGHT HIP PAIN, CALLED DR MIGUELANGEL STEIN, X-RAY OF HIP WAS ORDERED, RED SPOTS ON THE BODY, PICTURES TAKEN, NOTIFIED DR MEANS, NEW ORDERS CARRIED OUT, ONGOING IV FLUIDS FROM ER NS 0.9% BOLUS, LACTIC ACID 2.4, SODIUM 151, DR MIGUELANGEL STEIN IS AWARE, NO NEW ORDERS GICEN, G-TUBE, POSITIVE PLACEMENT, FLUSHED, ASPIRATED, 20 GAUGE L FOREARM, 20 GAUGE R HAND, NO S/S OF INFILTRATION, BED IN THE LOWEST POSITION, SEMI-ELIZABETH POSITION, CALL LIGHT WITHIN REACH, BED ALARM ACTIVATED, WILL CONTINUE TO MONITOR
--- NOTE | 2017-08-15 03:30 | NUR ---
PT TRANSPORTED TO [facility] 119-2 VIA STRETCHER ON ONCOLOGY NURSE NAVIGATOR WITH RN PER ACLS PROTOCOL. VSS.
--- NOTE | 2017-08-15 03:39 | NUR ---
Delbert bartlett in [facility] - 08/15/17 at 0340 by GIANFRANCO YASMINE HE.
[2017-08-15 04:00] VITALS: BP 128/49
[2017-08-15] MEDS ORDERED: PIPERACILLIN /TAZOBACTAM 3.375 G in IV D5W 100 ML IV SCH (05:00)
[2017-08-15] MEDS ORDERED: diphenhydrAMINE HCL 50 MG/ML VIAL IV PRN (05:30)
[2017-08-15] MEDS ORDERED: PIPERACILLIN /TAZOBACTAM 2.255 G in IV D5W 50 ML IV SCH (06:00)
[2017-08-15] MEDS ORDERED: GLYTROL 1,000 ML BAG GT SCH (06:00)
--- NOTE | 2017-08-15 06:26 | NUR ---
rn note glytrol was overrided by supervisor wet end, when i am scanning it says correct order but under 500 ml bag of glytrol, that's why was not able to scan it
--- NOTE | 2017-08-15 07:07 | NUR ---
RN NOTE PATIENT RECEIVED 2000 NS 0.9% BOLUS, PATIENT START RECEIVING NS AT ER, AND ER DID NOT SCAN IT, ENDORSED TO NEXT SHIFT
--- NOTE | 2017-08-15 07:30 | NUR ---
RN NOTE PATIENT IS STABLE DURING MY SHIFT, ASLEEP, AROUSE EASILY, REDNESS SUBSIDED, GARCIA CATH INTACT, DRAINS URINE WELL, NO RESPIRATORY DISTRESS NOTED, NO PAIN OR DISCOMFORT NOTED, LEFT FOREARM 20 GAUGE INTACT, RIGHT HAND 20 GAUGE INTACT, NO S/S OF INFILTRATION/INFECTION NOTED, X-RAY OF THE LEFT HIP WAS TAKEN JUST NOW, WILL ENDORSE AM SHIFT TO FOLLOW UP ON THE RESULT, G-TUBE FEEDING GLYTROL 80 ML/HR, 0 RESIDUAL, POSITIVE PLACMENT, TOLERATES WELL,ALL SAFETY MEASURES TAKEN, BED IN THE LOW POSITION, CALL LIGHT WITHIN REACH
[2017-08-15 08:00] VITALS: BP 107/55
[2017-08-15] MEDS: Z GUARD REMEDY 2 OZ OINT TP SCH (08:37)
[2017-08-15] MEDS: ASCORBIC ACID 500 MG TABLET GT SCH (08:37)
[2017-08-15] MEDS: MULTIVIT, IRON, MIN NO. 8, FA 1 TAB GT SCH (08:37)
[2017-08-15] MEDS: AMLODIPINE BESYLATE 5 MG TABLET GT SCH (08:38)
--- NOTE | 2017-08-15 11:29 | NUR ---
SPRING CRATER NOTE DR. ZHENG @ BEDSIDE ORDERED 200 ML FREE WATER FLUSH @ 6HR DUE TO SODIUM LEVEL.
[2017-08-15 12:00] VITALS: BP 117/63
[2017-08-15] MEDS ORDERED: IV 1/2NS 1000 ML 1,000 ML IV PRN (12:00)
[2017-08-15] MEDS ORDERED: IV 1/2NS 1000 ML 1,000 ML IV ONE (12:30)
[2017-08-15] MEDS: LEVOFLOXACIN 750 MG /D5W 150ML 750 MG in PREMIX 1 EA IV SCH (12:33)
[2017-08-15] MEDS: CLOTRIMAZOLE 1% 15 GM TUBE TP SCH (15:12)
[2017-08-15 16:00] VITALS: BP 127/58
[2017-08-15] MEDS: GLYTROL 1,000 ML BAG GT PRN (17:53)
--- NOTE | 2017-08-15 19:45 | NUR ---
RN NOTE RECEIVED PATIENT IN THE BED, CONFUSED, ORIENTED TO NAME, NO RESPIARTORY DISTRESS NOTED, , ONGOING IV FLUIDS, DX UTI/SEPSIS, LFA 20 GAUGE, R HAND 24 GAUGE NOTED, NO S/S OF INFILTRATION NOTED, WILL CONTINUE TO MONITOR PATIENT, ALL SAFETY MEASURES TAKEN, BED IN THE LOWEST POSITION, CALL LIGHT WITHIN REACH, WILL CONTINUE TO MONITOR PATIENT
[2017-08-15 20:00] VITALS: BP 128/70
--- NOTE | 2017-08-16 01:42 | NUR ---
RN NOTE RECEIVED PHONE CALL FROM LAB FOR PRELIMINARY RESULT FOR BLOOD CULTURE, POSITIVE TREE POSITIVE STAIN FOR COCCY IN CHAIN AND PAIRS, NOTIFY CHARGE NURSE
[2017-08-16] MEDS: CLOTRIMAZOLE 1% 15 GM TUBE TP SCH ×3 (02:38→21:27)
[2017-08-16 04:00] VITALS: BP 135/57
[2017-08-16 04:39] VITALS: BP 135/57
[2017-08-16 07:23] LABS: BASOPHILS % (AUTO) 0.2 % (0.0-2.0); EOSINOPHILS # (AUTO) 0.2 /CMM (0.0-0.7); EOSINOPHILS % (AUTO) 3.3 % (0.0-6.0); HEMATOCRIT 32 % (39-51); HEMOGLOBIN 10.9 g/dL (13.5-17.5); LYMPHOCYTES # (AUTO) 0.8 /CMM (0.8-4.8); MEAN CORPUSCULAR HEMOGLOBIN 33 PG (26.0-33.0); MEAN CORPUSCULAR HGB CONC 34 g/dl (31.0-36.0); MEAN CORPUSCULAR VOLUME 97 fL (80-96); MONOCYTES # (AUTO) 0.3 /CMM (0.1-1.30); MONOCYTES % (AUTO) 5.9 % (2.0-12.0); NEUTROPHILS % (AUTO) 75.6 % (43.0-81.0); PLATELET COUNT (AUTO) 106 /CMM (150-450); RDW COEFFICIENT OF VARIATION 15.9 (11.5-15.0); RED BLOOD CELL COUNT(AUTO) 3.33 MIL/uL (4.5-6.0); WHITE BLOOD COUNT (AUTO) 5.3 K/uL (4.3-11.0)
[2017-08-16 07:43] LABS: CALCIUM, SERUM 8.3 mg/dL (8.5-10.1); CARBON DIOXIDE 25 mmol/L (21-32); CHLORIDE 115 mmol/L (98-107); GLUCOSE 170 mg/dL (74-106); MAGNESIUM 2.3 mg/dL (1.8-2.4); PHOSPHORUS 2.5 mg/dL (2.5-4.9); POTASSIUM 3.9 mmol/L (3.5-5.1); SODIUM SERUM 151 mmol/L (136-145); UREA NITROGEN, BLOOD 28 mg/dL (7-18)
[2017-08-16 08:00] VITALS: BP 106/58
--- NOTE | 2017-08-16 08:00 | NUR ---
MS1/RN AM SHIFT INITIAL NOTES RECEIVED PT AWAKE IN BED, PT A/O X 1, CONFUSED. NO FEVER OR ACUTE CHANGE OF CONDITION NOTED. ON ROOM AIR SATURATING @ 96%, LUNG SOUNDS CLEAR. GT FEEDING ON GOING @ 80CC/HR, NO GASTRIC RESIDUAL NOTED, FLUSHED PATENT. GARCIA CATHETER INTACT, NOTED WITH CLOUDY YELLOW URINE OUTPUT. PT IS COMFORTABLE AT THIS TIME. CL WITHIN REACHED AND SAFETY MAINTAINED. ON GOING MONITORING.
--- NOTE | 2017-08-16 08:13 | NUR ---
RN NOTE NO ACUTE CHANGES DURING MY SHIFT, PATIENT IS STABLE, AWAKE/CONFUSED, ALL SAFETY MEASURES TAKEN
[2017-08-16] MEDS: AMLODIPINE BESYLATE 5 MG TABLET GT SCH (08:43)
[2017-08-16] MEDS: Z GUARD REMEDY 2 OZ OINT TP SCH (08:43)
[2017-08-16] MEDS: MULTIVIT, IRON, MIN NO. 8, FA 1 TAB GT SCH (08:43)
[2017-08-16] MEDS: ASCORBIC ACID 500 MG TABLET GT SCH (08:43)
[2017-08-16] MEDS: GLYTROL 1,000 ML BAG GT PRN (08:45)
--- NOTE | 2017-08-16 10:12 | NUR ---
TELE1/RN ROUNDS - DR. BELL PT SEEN & EXAMINED BY DR. BELL. NO NEW ORDERS RECEIVED AT THIS TIME. MONITORING CONTINUED.
--- NOTE | 2017-08-16 15:00 | NUR ---
MS1/RN ROUNDS - DR. DICK PT SEEN & EXAMINED BY DR. DICK. NO NEW ORDERS RECEIVED AT THIS TIME.
[2017-08-16 16:00] VITALS: BP 131/58
--- NOTE | 2017-08-16 17:38 | NUR ---
MS1/RN AFTERNOON ROUNDS PM CARE PROVIDED. NO ACUTE CHANGE OF CONDITION. MONITORING CONTINUED.
--- NOTE | 2017-08-16 19:43 | NUR ---
MS1/RN AM SHIFT END NOTES ALL NEEDS MET. NO ACUTE CHANGE OF CONDITION NOTED DURING THE SHIFT. PT ENDORSED TO PM NURSE TO CONTINUE CARE. CL WITHIN REACHED AND SAFETY MAINTAINED.
[2017-08-16] MEDS ORDERED: AZTREONAM 1 G VIAL ONE (22:01)
[2017-08-16] MEDS: AZTREONAM 1 G in IV NS 0.9% 100 ML IV SCH (22:15)
[2017-08-16] MEDS ORDERED: VANCOMYCIN 1 GM in IV NS 0.9% 250 ML IV ONE (23:45)
[2017-08-16 23:52] VITALS: BP 142/67
[2017-08-17] MEDS ORDERED: VANCOMYCIN 1 GM VIAL ONE (00:08)
[2017-08-17 04:39] VITALS: BP 127/64
--- NOTE | 2017-08-17 04:58 | NUR ---
WAS VISITED BY HIS SON EARLIER IN THE EVENING. PATIENT VERBALLY MEAN AT TIMES WHEN CARE IS BEING RENDERED, HE WILL CURSE AND PINCH HARD AND GRAB HAND AND PUCH IS NAILS IN TO THE NURSES SKIN HE IS CONFUSED ASPIRATION D/T GT IN PLACE WITH CONT FEEDING, NO RESIDUALS. GARCIA CATH PATENT, URINE CLEAR YELLOW AND THE RESULT FOR THE UA CULTURE STAPH CARMEN PATIENT IS ON ATB FOR COVERAGE.
[2017-08-17] MEDS ORDERED: FEE PK DOSING 1 MIN EA MC ONE (07:33)
[2017-08-17 08:00] VITALS: BP 126/77
--- NOTE | 2017-08-17 08:31 | NUR ---
WOUND CARE CONSULT: PT FOLLOWED BY SURGICAL TEAM FOR WOUND CARE. DEFER TO SURGICAL TEAM FOR WOUND TREATMENT PLAN. DISCUSSED SKIN PROTECTION WITH NURSING STAFF. ALL SKIN PROTECTION MEASURES IN PLACE. PT ON [place] ISOFLEX LOW AIRLOSS BED. MD IN AGREEMENT WITH PLAN OF CARE.
[2017-08-17] MEDS: AZTREONAM 1 G in IV NS 0.9% 100 ML IV SCH ×2 (09:32→21:32)
[2017-08-17] MEDS: MULTIVIT, IRON, MIN NO. 8, FA 1 TAB GT SCH (09:32)
[2017-08-17] MEDS: ASCORBIC ACID 500 MG TABLET GT SCH (09:32)
[2017-08-17] MEDS: Z GUARD REMEDY 2 OZ OINT TP SCH (09:33)
[2017-08-17] MEDS: AMLODIPINE BESYLATE 5 MG TABLET GT SCH (09:33)
[2017-08-17] MEDS: CLOTRIMAZOLE 1% 15 GM TUBE TP SCH ×2 (09:39→21:33)
[2017-08-17] MEDS: GLYTROL 1,000 ML BAG GT PRN (10:02)
[2017-08-17] MEDS: LEVOFLOXACIN 750 MG /D5W 150ML 750 MG in PREMIX 1 EA IV SCH (12:02)
[2017-08-17 15:08] LABS: CALCIUM, SERUM 8.5 mg/dL (8.5-10.1); CARBON DIOXIDE 27 mmol/L (21-32); CHLORIDE 112 mmol/L (98-107); CREATININE 0.9 mg/dL (0.6-1.3); GLUCOSE 175 mg/dL (74-106); POTASSIUM 4.3 mmol/L (3.5-5.1); SODIUM SERUM 147 mmol/L (136-145); UREA NITROGEN, BLOOD 23 mg/dL (7-18)
[2017-08-17 16:00] VITALS: BP 129/68
[2017-08-17] MEDS: VANCOMYCIN 1.25 GM in IV D5W 500 ML IV SCH (18:00)
--- NOTE | 2017-08-17 19:55 | NUR ---
RN NOTES PATIENT A/OX1, AGITATED AT TIMES, NO ACUTE CHANGES NOTED W/IN SHIFT. GT KEPT PATENT & INTACT, ON CONT TUBE FEEDING OF GLYTROL AT 80 CC/HR TOLERATED WELL. H20 200ML FREE FLUSHES GIVEN, 2 IV LINE ACCESS: R FA G22 AND R WRIST # 24, KEPT PATENT & INTACT W/ NO S/SX OF INFECTION/INFILTRATION NOTED, KEPT WELL RESTED. TURNED AND REPOSITIONED Q2HR, WOUND TREATMENT RENDERED, SKIN CARE PROVIDED, NEEDS ATTENDED. BED KEPT LOW & IN LOCKED POS. CALL LIGHT PLACED W/IN REACH. WILL ENDORSE MARKETING REPORTING ANALYST FOR YINA.
[2017-08-17 20:00] VITALS: BP 138/74
--- NOTE | 2017-08-17 20:30 | NUR ---
RN NOTE GAVE REPORT TO ANNE SILVA FOR CONTINUITY OF CARE.
[2017-08-17 21:00] VITALS: BP 145/82
--- NOTE | 2017-08-17 21:00 | NUR ---
RN NOTE PT TRANSFERRED TO [facility] FOR CONINUITY OF CARE. PT TRANSFERRED IN NO ACUTE DISTRESS IN BED. PT DID NOT HAVE ANY SIGNIFICANT CHANGE IN CONDITION DURING SHIFT.
--- NOTE | 2017-08-17 21:10 | NUR ---
RN NOTES ADMITTED PT FROM [facility]IA [facility]ITAL BED, ACCOMPANIED BY 2RN, PT AWAKE, ALERT AND ORIENTED X1 WITH CONFUSION AND DISORIENTATION. PT DENIES PAIN, NAUSEA AND VOMITING. VITAL SIGNS STABLE, ON ROOM AIR WITH GOOD SATURATION. IV ACCESS ON LEFT UPPER ARM PATENT AND INTACT WITH ONGOING VANCOMYCIN 1.25MG INFUSING WELL. GT INTACT WITH ONGOING GLYTROL AT 80ML/HR. . URINARY CATHETER INTACT WITH [place] COLORED URINE WITH SEDIMENTS NOTED. SKIN AND BODY ASSESSMENT DONE. KEPT PT CLEAN AND DRY. SAFETY MEASURES AND FALL PRECAUTION INITIATED. WILL CONTINUE TO MONITOR PT.
[2017-08-18] MEDS: GLYTROL 1,000 ML BAG GT PRN (02:12)
[2017-08-18 06:50] LABS: CALCIUM, SERUM 8.7 mg/dL (8.5-10.1); CARBON DIOXIDE 23 mmol/L (21-32); CHLORIDE 110 mmol/L (98-107); CREATININE 0.9 mg/dL (0.6-1.3); GLUCOSE 186 mg/dL (74-106); POTASSIUM 3.8 mmol/L (3.5-5.1); SODIUM SERUM 145 mmol/L (136-145); UREA NITROGEN, BLOOD 21 mg/dL (7-18)
[2017-08-18 07:14] LABS: BASOPHILS % (AUTO) 0.3 % (0.0-2.0); EOSINOPHILS # (AUTO) 0.2 /CMM (0.0-0.7); EOSINOPHILS % (AUTO) 3.4 % (0.0-6.0); HEMATOCRIT 34 % (39-51); HEMOGLOBIN 11.3 g/dL (13.5-17.5); LYMPHOCYTES # (AUTO) 0.8 /CMM (0.8-4.8); LYMPHOCYTES % (AUTO) 16.7 % (20.0-44.0); MEAN CORPUSCULAR HEMOGLOBIN 32 PG (26.0-33.0); MEAN CORPUSCULAR HGB CONC 34 g/dl (31.0-36.0); MEAN CORPUSCULAR VOLUME 95 fL (80-96); MONOCYTES # (AUTO) 0.3 /CMM (0.1-1.30); MONOCYTES % (AUTO) 5.8 % (2.0-12.0); NEUTROPHILS # (AUTO) 3.7 /CMM (1.8-8.9); NEUTROPHILS % (AUTO) 73.8 % (43.0-81.0); PLATELET COUNT (AUTO) 149 /CMM (150-450); RDW COEFFICIENT OF VARIATION 15.6 (11.5-15.0); RED BLOOD CELL COUNT(AUTO) 3.55 MIL/uL (4.5-6.0)
--- NOTE | 2017-08-18 07:30 | NUR ---
RN NOTES PT SLEPT ON AND OFF OVERNIGHT, CONFUSED AND DISORIENTED. VITAL SIGNS STABLE, ON ROOM AIR AND TOLERATED WELL. KEPT ALL DUE MEDS GIVEN. GT FEEDING TOLERATED WELL, NO EPISODE OF NAUSEA AND VOMITING. DENIES PAIN. WOUND DRESSING DONE. TURNED AND REPOSITION Q2H, PT IS COMBATIVE WHEN MOVED. SAFETY MEASURES AND FALL PRECAUTION OBSERVED. ENDORSED TO MORNING RN FOR CONTINUITY OF CARE.
[2017-08-18 08:00] VITALS: BP 110/81
[2017-08-18] MEDS: MULTIVIT, IRON, MIN NO. 8, FA 1 TAB GT SCH (08:59)
[2017-08-18] MEDS: ASCORBIC ACID 500 MG TABLET GT SCH (08:59)
[2017-08-18] MEDS: AMLODIPINE BESYLATE 5 MG TABLET GT SCH (08:59)
[2017-08-18] MEDS: Z GUARD REMEDY 2 OZ OINT TP SCH (09:00)
[2017-08-18] MEDS: CLOTRIMAZOLE 1% 15 GM TUBE TP SCH ×2 (09:00→21:11)
[2017-08-18] MEDS: AZTREONAM 1 G in IV NS 0.9% 100 ML IV SCH (09:01)
[2017-08-18] MEDS: VANCOMYCIN 1.25 GM in IV D5W 500 ML IV SCH (11:46)
--- NOTE | 2017-08-18 12:00 | NUR ---
MS/RN MYLES rivera as ordered, level due on Saturday 08/19 at 5am.
--- NOTE | 2017-08-18 13:48 | NUR ---
MS/hardwood flooring specialist update Spoke with , updated as to plan of care. All questions answered.
[2017-08-18 16:00] VITALS: BP 118/61
[2017-08-18] MEDS: LACTOBACILLUS RHAMNOSUS GG 1 EACH CAP.SPRINK GT SCH (17:04)
--- NOTE | 2017-08-18 18:27 | NUR ---
MS/RN End note Patient able to remove heplock, will need to reinsert. GT remains in place, with feeding infusing at 80ml/hr, no residual noted. All needs attended, will endorse to shift manager.
--- NOTE | 2017-08-18 19:00 | NUR ---
MS RN NOTE: PATIENT RESTING IN BED, A/O X1, IN STABLE, NO ACUTE DISTRESS NOTED. BREATHING EVEN AND UNLABORED, NO SOB NOTED. BED LOCKED AND IN LOWEST POSITION, CALL LIGHT IN REACH. WILL CONTINUE TO MONITOR.
[2017-08-18 20:00] VITALS: BP 145/71
[2017-08-18 20:51] VITALS: BP 145/71
[2017-08-18] MEDS ORDERED: CEFEPIME 1 GM in IV NS 0.9% 50 ML IV SCH (21:00)
[2017-08-18] MEDS: CEFEPIME 1 GM in IV NS 0.9% 50 ML IV SCH (21:12)
[2017-08-19] MEDS: GLYTROL 1,000 ML BAG GT PRN ×2 (03:09→17:34)
[2017-08-19 05:57] LABS: CALCIUM, SERUM 8.5 mg/dL (8.5-10.1); CARBON DIOXIDE 25 mmol/L (21-32); CHLORIDE 110 mmol/L (98-107); CREATININE 0.9 mg/dL (0.6-1.3); GLUCOSE 132 mg/dL (74-106); SODIUM SERUM 144 mmol/L (136-145); UREA NITROGEN, BLOOD 22 mg/dL (7-18)
[2017-08-19] MEDS: VANCOMYCIN 1.25 GM in IV D5W 500 ML IV SCH ×2 (06:07→17:34)
--- NOTE | 2017-08-19 06:36 | NUR ---
MS RN CLOSING NOTES PT COMFORTABLY ASLEEP AND EASILY AWAKEN, TOLERATING ROOM AIR 02 SAT 98% GT TUBE INFUSING ORDERED AND TOLERATING WELL. IN STABLE CONDITION. RESPIRATION EVEN AND UNLABORED. KEPT CLEAN AND DRY AND COMFORTABLE, ALL NURSING CARE RENDERED. NEEDS ATTENDED AND ANTICIPATED, FREQUENT VISUAL CHECK DONE FOR SAFETY EVERY 2 HOURS. GOOD SKIN CARE PROVIDED. REPOSITION Q2H. ON LOW BED AT ALL TIMES TO ENSURE SAFETY. SAFE HAZARD FREE ENVIRONMENT PROVIDED. CALL LIGHT WITHIN EASY TO REACH. WILL ENDORSE NEXT SHIFT CONTINUITY OF CARE
[2017-08-19 08:00] VITALS: BP 146/91
[2017-08-19] MEDS: MULTIVIT, IRON, MIN NO. 8, FA 1 TAB GT SCH (08:59)
[2017-08-19] MEDS: LACTOBACILLUS RHAMNOSUS GG 1 EACH CAP.SPRINK GT SCH ×2 (08:59→17:34)
[2017-08-19] MEDS: AMLODIPINE BESYLATE 5 MG TABLET GT SCH (08:59)
[2017-08-19] MEDS: ASCORBIC ACID 500 MG TABLET GT SCH (08:59)
[2017-08-19] MEDS: Z GUARD REMEDY 2 OZ OINT TP SCH (09:00)
[2017-08-19] MEDS: CLOTRIMAZOLE 1% 15 GM TUBE TP SCH ×2 (09:00→20:33)
[2017-08-19 16:00] VITALS: BP 109/79
[2017-08-19] MEDS ORDERED: VANCOMYCIN 1.25 GM in IV D5W 500 ML IV SCH (18:00)
--- NOTE | 2017-08-19 18:29 | NUR ---
RN MS NOTES PT IN BED, AWAKE, ALERT TO SELF, VERBALLY RESPONSIVE, WITH CONFUSION, MIDLINE INSERTED BY DR. ROSALES ORDERED, PER DR. BIR[place]INGH[place] NO DISCHARGE PLAN FOR TODAY, PT'S FABIOLA REFUSED CT ABDOMEN AND PELVIS WITH CONTRAST, STATED THAT SHE IS WORRIED OF THE SIDE EFFECTS OF THE CONTRAST, DR. BIR[place]INGHAM INFORMED, PM MEDS GIVEN ORDERED, PM CARE RENDERED, ASSISTED IN TURNING AND REPOSITIONING.
[2017-08-19 20:00] VITALS: BP 134/89
[2017-08-19] MEDS: CEFEPIME 1 GM in IV NS 0.9% 50 ML IV SCH (20:32)
[2017-08-20] MEDS: VANCOMYCIN 1.25 GM in IV D5W 500 ML IV SCH ×2 (05:32→17:51)
[2017-08-20 07:02] LABS: CALCIUM, SERUM 8.2 mg/dL (8.5-10.1); CARBON DIOXIDE 30 mmol/L (21-32); CHLORIDE 106 mmol/L (98-107); CREATININE 0.9 mg/dL (0.6-1.3); GLUCOSE 174 mg/dL (74-106); SODIUM SERUM 140 mmol/L (136-145); UREA NITROGEN, BLOOD 21 mg/dL (7-18)
--- NOTE | 2017-08-20 07:38 | NUR ---
MS/RN Patient received Patient received from maintenance technician 2nd shift. Alert to self only, GT with feeding at 80ml/hr, no residual. Midline to right upper arm flushed and in working order. Safety measures in place, bed in low setting, side rails X3 in upright position. Bed alarm switched on and in working order. Will continue to monitor and ensure safety.
[2017-08-20 08:03] VITALS: BP 138/92
[2017-08-20] MEDS: MULTIVIT, IRON, MIN NO. 8, FA 1 TAB GT SCH (08:39)
[2017-08-20] MEDS: ASCORBIC ACID 500 MG TABLET GT SCH (08:39)
[2017-08-20] MEDS: LACTOBACILLUS RHAMNOSUS GG 1 EACH CAP.SPRINK GT SCH ×2 (08:39→17:51)
[2017-08-20] MEDS: AMLODIPINE BESYLATE 5 MG TABLET GT SCH (08:39)
[2017-08-20] MEDS: CLOTRIMAZOLE 1% 15 GM TUBE TP SCH (08:40)
[2017-08-20] MEDS: Z GUARD REMEDY 2 OZ OINT TP SCH (08:40)
[2017-08-20] MEDS ORDERED: VANC1.252 IV (09:56)
[2017-08-20] MEDS ORDERED: CEFE1FRO IV (09:56)
[2017-08-20] MEDS ORDERED: LACT1CAP72 GT (09:56)
--- NOTE | 2017-08-20 10:50 | NUR ---
MS/cloth washer update Spoke with son Reymundo, updated as to plan of care. Made aware that patient is for discharge later today.
--- NOTE | 2017-08-20 11:21 | NUR ---
MS/RN Exit care Exit care prepared, belongings list signed, pictures taken ready for discharge later today.
--- NOTE | 2017-08-20 13:55 | NUR ---
MS/RN S/B Dr Rice Seen by Dr Rice - patient to be discharged to SNF today, continue with current medications.
[2017-08-20 16:00] VITALS: BP 138/65
--- NOTE | 2017-08-20 18:09 | NUR ---
MS/RN End note Patient ready for discharge this evening to [facility], hot die picker scheduled for 8p. Steiner catheter removed, has voided. Wounds redressed as ordered, pictures taken. Report called to Clara at facility, family ( and son)aware of discharge plans. Will endorse to security shift supervisor.
--- NOTE | 2017-08-20 19:30 | NUR ---
RN NOTES RECEIVED PT. AWAKE ON BED, A/OX1,CONFUSED , PT JUST WAITING FOR THE AMBULANCE , PT IS GOING TO BE TRANFER TO [facility], ON G-TUBE FEEDING, GLYTROL @ 80ML/HR, MIDLINE ON THE RIGHT UPPER ARM , PATENT, NOT IN DISTRESS, NO PAIN NOTED, CALL LIGHT WITHIN REACH, [id number], CONTINUE TO MONITOR,
[2017-08-20 20:00] VITALS: BP 167/77
--- NOTE | 2017-08-20 20:15 | NUR ---
RN NOTES EVENING CARE RENDERED, G-TUBE FEEDING IN PLACE, NO RESIDUAL NOTED, HOLD THE FEEDING AND PUT ABDOMINAL BINDER FOR PROTECTION, JUST WAITING FOR THE AMBULANCE TO CHEMICAL PROCESS PROJECT ENGINEER THE PT
--- NOTE | 2017-08-20 20:30 | NUR ---
RN NOTES AMBULANCE CAME AND DAMAGE APPRAISER THE PT. PT. TRANSFERRED TO [facility], V/S STABLE, DENIES PAIN, G-TUBE IN PLACE, NO SOB
--- NOTE | 2017-08-20 20:35 | NUR ---
RN NOTES CALLED PT'S JEWEL AND INFORMED HER THAT PT'S IS ALREADY ON HIS WAY TO [facility]. PT. IS GOING TO MEET HIM AT [facility]
== END 2017-08-20 20:30 | DRG 871 ==
LOC: ER 00:50 → TELE1 02:56 → MEDSG1 11:31 → MEDSG2 08-17 21:02
PROVIDERS: ADMIT Internal Medicine; ATTEND Internal Medicine
PROC: 05H533Z Insertion of Infusion Device into Right Subclavian Vein, Percutaneous Approach (ICD-10-PCS; principal; 2017-08-19)
PROC: B546ZZA Ultrasonography of Right Subclavian Vein, Guidance (ICD-10-PCS; 2017-08-19)
DX: A41.81 Sepsis due to Enterococcus (principal); N17.0 Acute kidney failure with tubular necrosis; G93.41 Metabolic encephalopathy; J18.9 Pneumonia, unspecified organism; D69.6 Thrombocytopenia, unspecified; E11.22 Type 2 diabetes mellitus with diabetic chronic kidney disease; E87.0 Hyperosmolality and hypernatremia; L89.890 Pressure ulcer of other site, unstageable; L89.893 Pressure ulcer of other site, stage 3; N39.0 Urinary tract infection, site not specified; J98.11 Atelectasis; R13.10 Dysphagia, unspecified; Z93.1 Gastrostomy status; G30.9 Alzheimer's disease, unspecified; F02.80 Dementia in other diseases classified elsewhere, unspecified severity, without behavioral disturbance, psychotic disturbance, mood disturbance, and anxiety; I12.9 Hypertensive chronic kidney disease with stage 1 through stage 4 chronic kidney disease, or unspecified chronic kidney disease; N18.9 Chronic kidney disease, unspecified; B95.62 Methicillin resistant Staphylococcus aureus infection as the cause of diseases classified elsewhere; L60.3 Nail dystrophy; L30.4 Erythema intertrigo; Z51.5 Encounter for palliative care; Z66 Do not resuscitate; L98.8 Other specified disorders of the skin and subcutaneous tissue; Z88.0 Allergy status to penicillin; B96.5 Pseudomonas (aeruginosa) (mallei) (pseudomallei) as the cause of diseases classified elsewhere; Z79.4 Long term (current) use of insulin; E86.0 Dehydration; N40.1 Benign prostatic hyperplasia with lower urinary tract symptoms; I69.820 Aphasia following other cerebrovascular disease; R65.20 Severe sepsis without septic shock
CPT/HCPCS: 36415; 36569; 70450-TC; 71045-TC; 73020; 73502; 80048-TC; 80076-TC; 80202-TC; 81000-TC; 83605-TC; 83735-TC; 84100-TC; 84484-TC; 85025-TC; 87040-TC; 87081-TC; 87086-TC; 87186-TC; 93307-TC; A4216; A4606; A6402; J0692; J1200; J1956; J2543; J3370; J3490; J7030; J7040; J7050; J7060; Z7610

== ENCOUNTER 2017-12-03 22:25 | Inpatient (IN) | payer MEDICARE, BC, OTHER ==
[~2017-12-03] VITALS: Ht 175.3 cm; Wt 82.1 kg
[~2017-12-03 22:25] MED LIST changes: -AMLO5TAB2 GT; +AMLO5TAB7 GT; +CEFE1FRO IV; -INSU100V3 SQ; +LACT1CAP72 GT; -LEVO500T75 PO; +VANC1.252 IV
--- NOTE | 2017-12-03 22:38 | NUR ---
PT BBRA FOR SOB, GENERALIZED WEKANESS AND ALTERED MORE THAN USUAL PER FACILITY STAFF. GCS10. RESP EVEN AND MILDLY LABORED WITH CRACKLES AUSCULTATED ON LUNG JUAREZ BILATERALLY. PT WAS PLACED ON NR 15L/M TIME CLOCK REPAIRER, SPO2 97%. SKIN HOT AND DRY TO TOUCH. PT NOTED TO BE TACHYCARDIC AT 120BPM AND RESPIRATIONS AT 28 PER MINUTE. PT PLACED ON DENTAL TECH AND POX. PT SAFETY AND COMFORT MEASURES IN PLACE. PT ARRIVED WITH GARCIA CATHETER IN PLACE. AWAITING MD FOR EVAL.
--- NOTE | 2017-12-03 22:49 | NUR ---
DR SCHWAB SPOKE WITH PMD DR LAZAR. PER DR SCHWAB PT DNR/DNI.
--- NOTE | 2017-12-03 22:58 | NUR ---
PHLEBOTOMY BEDSIDE FOR BLOOD DRAW.
--- NOTE | 2017-12-03 23:20 | NUR ---
RT BEDSIDE TO SUCTION PT AND PLACE PT ON VENTURI MASK 40% PER SCHWAB.
[2017-12-03 23:25] LABS: EOSINOPHILS % (AUTO) 0.3 % (0.0-6.0); HEMATOCRIT 35 % (39-51); HEMOGLOBIN 11.3 g/dL (13.5-17.5); LYMPHOCYTES # (AUTO) 0.6 /CMM (0.8-4.8); LYMPHOCYTES % (AUTO) 4.1 % (20.0-44.0); MEAN CORPUSCULAR HGB CONC 33 g/dl (31.0-36.0); MEAN CORPUSCULAR VOLUME 93 fL (80-96); MONOCYTES # (AUTO) 0.4 /CMM (0.1-1.30); NEUTROPHILS # (AUTO) 13.3 /CMM (1.8-8.9); NEUTROPHILS % (AUTO) 92.6 % (43.0-81.0); PLATELET COUNT (AUTO) 186 /CMM (150-450); RDW COEFFICIENT OF VARIATION 16.5 (11.5-15.0); RED BLOOD CELL COUNT(AUTO) 3.73 MIL/uL (4.5-6.0); WHITE BLOOD COUNT (AUTO) 14.3 K/uL (4.3-11.0)
[2017-12-03 23:39] LABS: INR 1.03 (0.87-1.13)
[2017-12-03 23:41] LABS: ALANINE AMINOTRANSFERASE 44 U/L (12-78); ALBUMIN 2.2 g/dL (3.4-5.0); ALKALINE PHOSPHATASE 98 U/L (46-116); ASPARTATE AMINOTRANSFERASE 28 U/L (15-37); BILIRUBIN,DIRECT 0.1 mg/dL (0.0-0.2); BILIRUBIN,TOTAL 0.5 mg/dL (0.2-1.0); CALCIUM, SERUM 9.1 mg/dL (8.5-10.1); CARBON DIOXIDE 31 mmol/L (21-32); CHLORIDE 124 mmol/L (98-107); CREATININE 1.9 mg/dL (0.6-1.3); GLUCOSE 184 mg/dL (74-106); POTASSIUM 4.3 mmol/L (3.5-5.1); UREA NITROGEN, BLOOD 75 mg/dL (7-18)
--- NOTE | 2017-12-03 23:42 | NUR ---
PER , GARCIA CATH DISCONTINUED AND NEW GARCIA CATH PLACED. URINE SAMPLE COLLECTED FROM NEW GARCIA CATH AND CALLED LAB FOR METAL WORKER.
[2017-12-03 23:43] LABS: SODIUM SERUM 162 mmol/L (136-145); TROPONIN I 0.042 ng/mL (0.00-0.056)
[2017-12-03 23:45] LABS: ABG BASE EXCESS 1.9 mmol/L; ABG OXYGEN SATURATION 98.8 % (92.0-98.5); ABG PCO2 30.9 mmHg (35.0-45.0); ABG PH 7.514 (7.350-7.450); ABG PO2 203.6 mmHg (75.0-100.0); AaDO2 478.5 mmHg; COHb 0.1 % (0.5-1.5); MetHb 0.4 % (0.0-1.5); O2Hb 98.3 % (94.0-97.0); SITE, ABG Right Radial; VENT MODE, BG nrb
[2017-12-04] MEDS ORDERED: MEROPENEM 500 MG in IV NS 0.9% 50 ML IV ONE ×2
[2017-12-04] MEDS ORDERED: ACETAMINOPHEN 650 MG/20.3 ML UDC GT ONE
[2017-12-04] MEDS ORDERED: IV NS 0.9% 1,000 ML BAG IV ONE
[2017-12-04] MEDS ORDERED: VANCOMYCIN 1 GM in IV D5W 250 ML IV ONE ×2
[2017-12-04 00:02] LABS: BAND % (MANUAL) 11 % (0.0-5.0); EOSINOPHILS % (MANUAL) 1 % (0-4); LYMPHOCYTES % (MANUAL) 6 % (16-48); MONOCYTES % (MANUAL) 1 % (0-11.0); NEUTROPHILS % (MANUAL) 81 (42-76)
[2017-12-04] MEDS ORDERED: ACETAMINOPHEN 650 MG/20.3 ML UDC ONE (00:03)
[2017-12-04] MEDS ORDERED: VANCOMYCIN 1 GM VIAL ONE (00:03)
[2017-12-04] MEDS ORDERED: MEROPENEM 500 MG VIAL IV ONE (00:03)
--- NOTE | 2017-12-04 00:21 | NUR ---
CALLED NURSING INSIDE TESTER AND REQUESTED A [facility] BED.
--- NOTE | 2017-12-04 00:33 | NUR ---
PT IS ASSIGNED TO [facility] RM#: [id number], PT IS DIAGNOSED WITH SEPSIS/ ACUTE RESPIRATORY FAILURE, AND DR KNUTSON IS THE ACCEPTING MD.
[2017-12-04] MEDS ORDERED: IV D5W 1,000 ML IV PRN (00:42)
[2017-12-04] MEDS ORDERED: ACETAMINOPHEN 325 MG TABLET PO PRN (01:00)
[2017-12-04] MEDS ORDERED: ONDANSETRON HCL/PF 4 MG/2 ML VIAL IVP PRN (01:00)
[2017-12-04] MEDS ORDERED: MAG HYDROX/AL HYDROX/SIMETH 30 ML UDC PO PRN (01:00)
[2017-12-04] MEDS ORDERED: MAGNESIUM HYDROXIDE 30 ML UDC PO PRN (01:00)
[2017-12-04] MEDS ORDERED: ZOLPIDEM TARTRATE 5 MG TABLET PO PRN (01:00)
--- NOTE | 2017-12-04 01:05 | NUR ---
REPORT GIVEN TO CHESTER QUESADA FOR YINA.
[2017-12-04 01:07] LABS: APPEARANCE,URINE TURBID (CLEAR)
[2017-12-04 01:08] LABS: COLOR,URINE YELLOW (YELLOW)
[2017-12-04 01:09] LABS: BILIRUBIN,URINE NEGATIVE (NEGATIVE); BLOOD, URINE 3+ Ery/uL (NEGATIVE); KETONES,URINE NEGATIVE (NEGATIVE); PROTEIN,URINE 2+ mg/dl (NEGATIVE); UGLUCOSE NEGATIVE (NEGATIVE); UROBILINOGEN,URINE 0.2 EU/dL (0.2)
[2017-12-04 01:10] LABS: LEUKOCYTE ESTERASE ,URINE 3+ (NEGATIVE); NITRITE, URINE POSITIVE (NEGATIVE)
[2017-12-04 01:12] LABS: BACTERIA,URINE 3+ /HPF (None Seen); RBC,URINE 21-50 /HPF (0-2); WBC,URINE TOO NUMEROUS TO COUN /HPF (0-3)
[2017-12-04 01:13] LABS: SQUAMOUS EPITHELIAL CELL,UR Few /HPF (None Seen)
[2017-12-04] MEDS ORDERED: DEXTROSE 50%-WATER 50 ML DISP.SYRIN IV PRN ×2 (01:30→23:00)
[2017-12-04 01:50] LABS: OSMOLALITY,URINE 413 mOS/kg (340-1090)
[2017-12-04 01:55] LABS: URINE SODIUM, RANDOM 34 mmol/l (40-220)
--- NOTE | 2017-12-04 02:30 | NUR ---
[facility]/RN ADMITTING NOTES: RECEIVED PT. VIA GURNEY TO RM: [id number]. W/ AND SON PRESENT AT BEDSIDE. NON VERBAL BUT RESPONSIVE TO PAINFUL STIMULI. ON VENTURI MASK W/ 15 LPM W/ FIO2 OF 40% SAT 98%. NO FACIAL GRIMACES OR MOANING NOTED. W/ RH G 20 AND LT. HAND G 18 PATENT AND INTACT W/ NO S/S OF INFECTION/INFILTRATION NOTED. W/ D5W @ 75 CC/HR. W/ GLUCERNA 1.2 @ 65 CC/HR W/ NO RESIDUAL NOTED. F/C PATENT AND INTACT W/ DARK YELLOW W/ SEDIMENTS AND CLOUDY URINE VIA GRAVITY. CALL LIGHT W/ REACH. WILL CONTINUE TO MONITOR.
[2017-12-04 04:00] VITALS: BP 107/48
[2017-12-04] MEDS ORDERED: GLUCERNA 1.2 1,000 ML BOTTLE GT PRN (04:00)
[2017-12-04 05:00] VITALS: BP 107/48
[2017-12-04 06:24] LABS: BASOPHILS % (AUTO) 0.1 % (0.0-2.0); EOSINOPHILS % (AUTO) 0.3 % (0.0-6.0); HEMATOCRIT 27 % (39-51); HEMOGLOBIN 8.9 g/dL (13.5-17.5); LYMPHOCYTES % (AUTO) 6.9 % (20.0-44.0); MEAN CORPUSCULAR HGB CONC 32 g/dl (31.0-36.0); MEAN CORPUSCULAR VOLUME 93 fL (80-96); MONOCYTES # (AUTO) 0.4 /CMM (0.1-1.30); MONOCYTES % (AUTO) 2.8 % (2.0-12.0); NEUTROPHILS # (AUTO) 12.5 /CMM (1.8-8.9); NEUTROPHILS % (AUTO) 89.9 % (43.0-81.0); PLATELET COUNT (AUTO) 147 /CMM (150-450); RDW COEFFICIENT OF VARIATION 16.9 (11.5-15.0); RED BLOOD CELL COUNT(AUTO) 2.94 MIL/uL (4.5-6.0); WHITE BLOOD COUNT (AUTO) 13.9 K/uL (4.3-11.0)
[2017-12-04 06:51] LABS: TROPONIN I 0.092 ng/mL (0.00-0.056)
[2017-12-04 06:53] LABS: ALANINE AMINOTRANSFERASE 34 U/L (12-78); ALBUMIN 1.6 g/dL (3.4-5.0); ALKALINE PHOSPHATASE 70 U/L (46-116); ASPARTATE AMINOTRANSFERASE 26 U/L (15-37); BILIRUBIN,TOTAL 0.3 mg/dL (0.2-1.0); CALCIUM, SERUM 7.8 mg/dL (8.5-10.1); CARBON DIOXIDE 25 mmol/L (21-32); CREATININE 1.7 mg/dL (0.6-1.3); GLUCOSE 226 mg/dL (74-106); MAGNESIUM 2.8 mg/dL (1.8-2.4); PHOSPHORUS 2.8 mg/dL (2.5-4.9); POTASSIUM 4.2 mmol/L (3.5-5.1); TOTAL PROTEIN, SERUM 6.3 g/dL (6.4-8.2); UREA NITROGEN, BLOOD 63 mg/dL (7-18)
[2017-12-04 06:54] LABS: CHOLESTEROL 98 mg/dL (<200); HDL CHOLESTEROL 27 mg/dL (40-60); LDL 66 mg/dL (0-99); THYROID STIMULATING HORMONE 1.605 uIU/mL (0.358-3.74); TRIGLYCERIDES 82 mg/dL (30-150)
--- NOTE | 2017-12-04 07:22 | NUR ---
[facility]/TELE NOTED: NO ACUTE CHANGES NOTED THIS SHIFT. REPORT GIVEN TO AM NURSE FOR YINA. ON TELE MONITOR W/ ST @ 121. WILL CONTINUE TO MONITOR.
[2017-12-04 07:40] LABS: CHLORIDE 127 mmol/L (98-107); SODIUM SERUM 162 mmol/L (136-145)
--- NOTE | 2017-12-04 07:40 | NUR ---
WOUND CARE CONSULT: PT FOLLOWED BY SURGICAL TEAM FOR WOUNDS. DEFER TO SURGICAL TEAM FOR WOUND TREATMENT PLAN. ALL SKIN PROTECTION AND PRESSURE ULCER PREVENTION MEASURES IN PLACE AND DISCUSSED WITH NURSING STAFF.
--- NOTE | 2017-12-04 07:45 | NUR ---
RN YEISON: pt.is reactive by touch, lethargic, able to open eyes for seconds, but unable follow commands, no eyes contact, s/p CVA, O2 sat. 96%, on 10L SM, was on Venturi mask, ABG done: pH 7.51, pCO2 30, pO2 203, bicarb 24, T down to 99, SR, SBP over 100, same Na+163, getting D5W, will s/w MD, getting GTF, residual WNL, keep HOB over 40, lactic acid 3.4, pt.was evaluated w/c nurse, see new orders
[2017-12-04] MEDS ORDERED: CIPR-262 GT (07:46)
[2017-12-04] MEDS ORDERED: AMIN30LI4 GT (07:46)
[2017-12-04] MEDS ORDERED: LEVA0.6320 IH (07:46)
[2017-12-04] MEDS ORDERED: TRAM50TA2 GT (07:46)
[2017-12-04] MEDS ORDERED: ACET-2605 GT (07:46)
[2017-12-04 08:00] VITALS: BP_SYST 124; BP_SYST 134; BP_DIAS 58; BP_DIAS 65
[2017-12-04] MEDS ORDERED: FEE PK DOSING 1 MIN EA MC ONE (08:00)
[2017-12-04] MEDS: INSULIN REGULAR, HUMAN 100 UNIT/ML 3 ML VIAL SQ PRN ×4 (08:14→21:58)
[2017-12-04] MEDS: BLOOD SUGAR DIAGNOSTIC 1 EACH STRIP IN SCH ×4 (08:16→21:45)
[2017-12-04] MEDS: Z GUARD REMEDY 2 OZ OINT TP PRN (08:16)
[2017-12-04] MEDS: PANTOPRAZOLE 40 MG VIAL IV SCH (08:19)
[2017-12-04] MEDS: HEPARIN SODIUM, PORCINE 5000 UNITS/1 ML VIAL SQ SCH ×2 (08:20→21:45)
--- NOTE | 2017-12-04 09:00 | NUR ---
RN YEISON: pt.son called, notified re pt.current condition, VS, I/O, orders, labs, POC
[2017-12-04] MEDS ORDERED: IV NS 0.9% 1,000 ML IV PRN (09:24)
[2017-12-04 09:52] LABS: IRON, SERUM 15 ug/dl (50-175); TOTAL IRON BINDING CAPACITY 121 ug/dl (250-450)
[2017-12-04 10:05] LABS: FERRITIN 634 ng/mL (8-388)
--- NOTE | 2017-12-04 11:30 | NUR ---
RN YEISON: NEVIN Hong is in room, notified re pt.history, neurostatus, VS, I/O, O2sat. on 10L SM, orders, IVF NS@125ml/h, GTF, labs, Na+ 162, ABG, lactic acid, head CT order, skin problem, was in room also, updated. DT called/increased GTF rate 70ml/h.
[2017-12-04 12:00] VITALS: BP 103/37
[2017-12-04] MEDS: MEROPENEM 1 G in IV NS 0.9% 100 ML IV SCH (12:06)
[2017-12-04] MEDS: VANCOMYCIN 0.75 GM in IV NS 0.9% 250 ML IV SCH (12:06)
--- NOTE | 2017-12-04 15:20 | NUR ---
Patient has hx of dementia,resides at [facility] [phone].Bedfast most of the time, requires max to total assist with adl's. Current dc plan is to dc back to SNF via ambulance Addendum: 12/04/17 at 1520 by TIGRE VEGAS RN Amended: Links added.
[2017-12-04 16:00] VITALS: BP 142/52
[2017-12-04] MEDS: IV 1/2NS 1000 ML 1,000 ML IV PRN (16:07)
[2017-12-04 17:58] LABS: CALCIUM, SERUM 8.3 mg/dL (8.5-10.1); CARBON DIOXIDE 23 mmol/L (21-32); CREATININE 1.5 mg/dL (0.6-1.3); GLUCOSE 192 mg/dL (74-106); POTASSIUM 4.1 mmol/L (3.5-5.1); UREA NITROGEN, BLOOD 56 mg/dL (7-18)
[2017-12-04 18:08] LABS: CHLORIDE 130 mmol/L (98-107); SODIUM SERUM 163 mmol/L (136-145)
[2017-12-04 20:00] VITALS: BP 109/45
--- NOTE | 2017-12-04 20:10 | NUR ---
RN YEISON Received bedside report from am nurse. patient in bed , lethargic, could open his eyes for 3-5 sec.,couldn't answer my questions/ sleepy. No labored breathing or sob noted at this time. O2sat. on 10L O2 is 98%. IVF 1/2 NS@125ml/h and GTF 70ml/hr noted, labs, Na+ 163 notified . All safety measures are implemented, bed in low, locked position, call light within reach. well cont. to monitor.
[2017-12-04] MEDS: GLUCERNA 1.2 1,000 ML BOTTLE GT PRN (20:23)
[2017-12-05] VITALS: BP 113/56
[2017-12-05] MEDS ORDERED: BLOOD SUGAR DIAGNOSTIC 1 EACH STRIP IN SCH
[2017-12-05] MEDS: MEROPENEM 1 G in IV NS 0.9% 100 ML IV SCH ×2 (00:34→11:21)
[2017-12-05] MEDS: IV 1/2NS 1000 ML 1,000 ML IV PRN ×2 (00:44→13:07)
[2017-12-05] MEDS: VANCOMYCIN 0.75 GM in IV NS 0.9% 250 ML IV SCH (01:15)
[2017-12-05 04:00] VITALS: BP 121/63
[2017-12-05] MEDS: BLOOD SUGAR DIAGNOSTIC 1 EACH STRIP IN SCH ×5 (04:44→23:58)
[2017-12-05] MEDS: INSULIN REGULAR, HUMAN 100 UNIT/ML 3 ML VIAL SQ PRN ×3 (04:52→17:50)
--- NOTE | 2017-12-05 06:00 | NUR ---
YEISON RN NOTES ACCU-CHECK IS DONE AT 0444 AND 2 UNITS OF INSULIN IS GIVEN AT 0452.
[2017-12-05 06:21] LABS: BASOPHILS % (AUTO) 0.1 % (0.0-2.0); EOSINOPHILS % (AUTO) 2.3 % (0.0-6.0); HEMATOCRIT 30 % (39-51); HEMOGLOBIN 9.6 g/dL (13.5-17.5); LYMPHOCYTES # (AUTO) 0.8 /CMM (0.8-4.8); LYMPHOCYTES % (AUTO) 8.6 % (20.0-44.0); MEAN CORPUSCULAR HGB CONC 32 g/dl (31.0-36.0); MEAN CORPUSCULAR VOLUME 94 fL (80-96); MONOCYTES # (AUTO) 0.2 /CMM (0.1-1.30); MONOCYTES % (AUTO) 2.5 % (2.0-12.0); NEUTROPHILS # (AUTO) 8.1 /CMM (1.8-8.9); NEUTROPHILS % (AUTO) 86.5 % (43.0-81.0); PLATELET COUNT (AUTO) 150 /CMM (150-450); RDW COEFFICIENT OF VARIATION 17.1 (11.5-15.0); RED BLOOD CELL COUNT(AUTO) 3.13 MIL/uL (4.5-6.0); WHITE BLOOD COUNT (AUTO) 9.4 K/uL (4.3-11.0)
[2017-12-05 06:35] LABS: TROPONIN I 0.128 ng/mL (0.00-0.056)
[2017-12-05 06:42] LABS: ALANINE AMINOTRANSFERASE 30 U/L (12-78); ALBUMIN 1.7 g/dL (3.4-5.0); ALKALINE PHOSPHATASE 90 U/L (46-116); ASPARTATE AMINOTRANSFERASE 28 U/L (15-37); BILIRUBIN,TOTAL 0.3 mg/dL (0.2-1.0); CALCIUM, SERUM 8.3 mg/dL (8.5-10.1); CARBON DIOXIDE 25 mmol/L (21-32); CREATININE 1.4 mg/dL (0.6-1.3); GLUCOSE 177 mg/dL (74-106); MAGNESIUM 2.7 mg/dL (1.8-2.4); PHOSPHORUS 2.6 mg/dL (2.5-4.9); POTASSIUM 3.7 mmol/L (3.5-5.1); TOTAL PROTEIN, SERUM 6.8 g/dL (6.4-8.2); UREA NITROGEN, BLOOD 45 mg/dL (7-18)
[2017-12-05 06:55] LABS: CHLORIDE 129 mmol/L (98-107); SODIUM SERUM 165 mmol/L (136-145)
--- NOTE | 2017-12-05 07:00 | NUR ---
YEISON RN NOTES I GOT A CALL FROM LAB ABOUT PT'S LAB VALUE Na-165 AND Cl-129. MAJOR LEAGUE BASEBALL PLAYER ADRIANNA MAZARIEGOS NOTIFIED AND PATIENT CARE IS ENDORSED TO AM NURSE.
--- NOTE | 2017-12-05 07:43 | NUR ---
MS RN OPENING NOTES RECEIVED PATIENT ASLEEP IN BED, AROUSABLE. HOB ELEVATED. SEEMS COMFORTABLE AND IN NO ACUTE SIGNS OF DISTRESS. ON 02 VIA MASK @ 10LPM, RESPIRATION EVEN AND UNLABORED AT THIS TIME. IV ACCESS ON SONALI INTACT AND PATENT, IVF OF 1/2 NS @ 125ML/HR INFUSING, NO SIGNS OF INFILTRATION OR REDNESS TO SITE NOTED. GARCIA CATH IN PLACE AND ACTIVELY DRAINING CLEAR YELLOW OUTPUT TO BEDSIDE COLLECTION BAG. BED IN LOW/LOCKED POSITION WITH SIDE-RAILS UP X3. CALL LIGHT WITHIN REACH. WILL MAINTAIN ALL SAFETY PRECAUTIONS AND CONTINUE TO CLOSELY MONITOR PT'S STATUS.
[2017-12-05 08:00] VITALS: BP 125/61
[2017-12-05] MEDS: PANTOPRAZOLE 40 MG VIAL IV SCH (08:34)
[2017-12-05] MEDS: HEPARIN SODIUM, PORCINE 5000 UNITS/1 ML VIAL SQ SCH ×2 (08:35→21:31)
--- NOTE | 2017-12-05 09:31 | NUR ---
RN NOTES REPORTED TO LEO DAVALOS NP WHO WAS ON UNIT ALL THE ABNORMAL LAB RESULTS THAT WAS DONE EARLY THIS MORNING ESPECIALLY HIGH LEVEL OF NA 165, CHLORIDE 129 AND TROPONIN 0.128. HE SAID THAT HE WILL LOOK AND REVIEW ALL THE LABSM THEN WENT TO PATIENT AND EVALUATED PT. WILL CONTINUE TO MONITOR.
[2017-12-05] MEDS: Z GUARD REMEDY 2 OZ OINT TP PRN (11:55)
[2017-12-05] MEDS: GLUCERNA 1.2 1,000 ML BOTTLE GT PRN (13:06)
[2017-12-05] MEDS: IV D5W 1,000 ML IV PRN (14:40)
--- NOTE | 2017-12-05 14:43 | NUR ---
RN NOTES PT SEEN BY DR JENNIFER GOODMAN WITH ORDER TO CHANGE IVF OF 1/2 NS TO D5W @ 125ML/HR. ORDERED CARRIED OUT. WILL CONTINUE TO MONITOR.
[2017-12-05 16:00] VITALS: BP 134/69
--- NOTE | 2017-12-05 17:04 | NUR ---
RN NOTES CALLED AND EXPLAINED TO PT'S FABIOLA BONNER THAT PT IS FOR SACRAL AND BILATERAL WOUND DEBRIDEMENT, SHE VERBALIZED UNDERSTANDING AND GAVE CONSENT. TELEPHONE CONSENT VERIFY WITH ANOTHER RN ON THE UNIT. CONSENT FILED ON THE CHART.
--- NOTE | 2017-12-05 17:33 | NUR ---
RN NOTES CONTACTED [employer] JEWEL LOPEZ AND ASKED WHEN ARE THEY GOING TO DO THE SACRAL AND BILATERAL BUTTOCKS DEBRIDEMENT AND SAID THAT IT WILL BE ON 12/07/2017. INFORMED HER ALSO THAT SHE NEEDS TO TALK TO PT'S FABIOLA BEFORE DOING THE PROCEDURE.
--- NOTE | 2017-12-05 18:28 | NUR ---
MS RN CLOSING NOTES PATIENT IN BED LYING COMFORTABLY AT MODERATE HIGH BACKREST POSITION. ASLEEP MOST OF THE TIME DURING THE DAY, AWAKENS TO TACTILE AND VERBAL STIMULI. VISITED AT LUNCHTIME. PT MAINTAINED ON 02 VIA MASK @ 10LPM, BREATHING UNLABORED WITH NO ACUTE RESPIRATORY DISTRESS NOTED. IV ACCESS ON SONALI INTACT AND PATENT, IVF OF D5W @ 125ML/HR INFUSING WELL, NO SIGNS OF INFILTRATION OR REDNESS AT SITE NOTED. GARCIA CATH IN PLACE AND ACTIVELY DRAINING CLEAR YELLOW OUTPUT TO BEDSIDE COLLECTION BAG. PT TURNED AND REPOSITIONED Q2HRS AND PRN. HOB KEPT ELEVATED. BED IN LOW/LOCKED POSITION WITH SIDE-RAILS UP X3. CALL LIGHT WITHIN REACH. ALL SAFETY MEASURES KEPT IN PLACE. ALL NEEDS AND CARE PROVIDED WELL. WILL ENDORSED TO PLANNER/SCHEDULER NURSE FOR YINA.
[2017-12-05 19:57] LABS: CALCIUM, SERUM 8.2 mg/dL (8.5-10.1); CARBON DIOXIDE 25 mmol/L (21-32); CHLORIDE 125 mmol/L (98-107); CREATININE 1.2 mg/dL (0.6-1.3); GLUCOSE 229 mg/dL (74-106); POTASSIUM 4.2 mmol/L (3.5-5.1); UREA NITROGEN, BLOOD 37 mg/dL (7-18)
[2017-12-05 20:00] VITALS: BP 126/71
[2017-12-05 20:04] LABS: SODIUM SERUM 158 mmol/L (136-145)
--- NOTE | 2017-12-05 20:05 | NUR ---
YEISON RN NOTES Received bedside report from am nurse. patient in bed ,sleepy , could open his eyes for 10-15 min./ confused. No labored breathing or sob noted at this time. O2sat. on 10L O2 is 98%. SONALI 22G IV line intact, patient with D5W @125ml/h and GTF 70ml/hr noted, labs, Na+ 158. notified . All safety measures are implemented, bed in low, locked position, call light within reach. well cont. to monitor.
[2017-12-05] MEDS: VANCOMYCIN 1 GM in IV D5W 250 ML IV SCH (20:28)
--- NOTE | 2017-12-05 22:35 | NUR ---
edgardo rn notes Pt son is bedside and concerned about pt's speech. he voiced that pt's speech is slurred. Dr. Navarrete is notified. Will F/U with .
[2017-12-06] MEDS: MEROPENEM 1 G in IV NS 0.9% 100 ML IV SCH ×2 (00:13→12:44)
[2017-12-06] MEDS: IV D5W 1,000 ML IV PRN ×3 (00:22→22:38)
[2017-12-06] MEDS: INSULIN REGULAR, HUMAN 100 UNIT/ML 3 ML VIAL SQ PRN ×3 (00:31→13:01)
[2017-12-06 04:00] VITALS: BP 133/70
[2017-12-06] MEDS: Z GUARD REMEDY 2 OZ OINT TP PRN (04:55)
[2017-12-06] MEDS: GLUCERNA 1.2 1,000 ML BOTTLE GT PRN (05:47)
[2017-12-06] MEDS: BLOOD SUGAR DIAGNOSTIC 1 EACH STRIP IN SCH ×3 (05:54→17:38)
[2017-12-06 06:47] LABS: CALCIUM, SERUM 7.9 mg/dL (8.5-10.1); CARBON DIOXIDE 27 mmol/L (21-32); CHLORIDE 122 mmol/L (98-107); CREATININE 1.2 mg/dL (0.6-1.3); GLUCOSE 162 mg/dL (74-106); POTASSIUM 3.8 mmol/L (3.5-5.1); UREA NITROGEN, BLOOD 31 mg/dL (7-18)
[2017-12-06 06:55] LABS: SODIUM SERUM 157 mmol/L (136-145)
--- NOTE | 2017-12-06 07:30 | NUR ---
MS RN OPENING NOTES RECEIVED PATIENT IN BED SLEEPING, EASILY AROUSABLE, RESPONSIVE, OPEN EYES, CONFUSED, REORIENTED PATIENT. ON VENTURI MASK 10LPM, SPO2 100%. NOT IN ANY FORM OF DISTRESS, NO SOB. SO S/S OF PAIN OR DISCOMFORT. IV SITE INTACT AND PATENT. GTF 70ML/HR NOTED. GARCIA IN PLACE, DRAINING YELLOW CLEAR URINE. KEPT PATIENT SAFE AND COMFORTABLE. BED IN LOW/LOCKED POSITION, SIDERAILS UPX2, HOB ELEVATED, CALL LIGHT IN REACH. WILL CONTINUE TO MONITOR ACCORDINGLY.
[2017-12-06 08:00] VITALS: BP 91/38
[2017-12-06 08:45] VITALS: BP 130/69
[2017-12-06] MEDS: PANTOPRAZOLE 40 MG VIAL IV SCH (09:19)
[2017-12-06] MEDS: HEPARIN SODIUM, PORCINE 5000 UNITS/1 ML VIAL SQ SCH ×2 (09:29→21:00)
[2017-12-06 10:34] LABS: EOSINOPHILS % (AUTO) 4.9 % (0.0-6.0); HEMATOCRIT 28 % (39-51); HEMOGLOBIN 9.3 g/dL (13.5-17.5); LYMPHOCYTES # (AUTO) 0.8 /CMM (0.8-4.8); LYMPHOCYTES % (AUTO) 13.4 % (20.0-44.0); MEAN CORPUSCULAR HGB CONC 33 g/dl (31.0-36.0); MEAN CORPUSCULAR VOLUME 92 fL (80-96); MONOCYTES # (AUTO) 0.2 /CMM (0.1-1.30); MONOCYTES % (AUTO) 3.6 % (2.0-12.0); NEUTROPHILS # (AUTO) 4.9 /CMM (1.8-8.9); NEUTROPHILS % (AUTO) 78.1 % (43.0-81.0); PLATELET COUNT (AUTO) 143 /CMM (150-450); RDW COEFFICIENT OF VARIATION 16.5 (11.5-15.0); RED BLOOD CELL COUNT(AUTO) 3.09 MIL/uL (4.5-6.0); WHITE BLOOD COUNT (AUTO) 6.2 K/uL (4.3-11.0)
[2017-12-06 12:00] VITALS: BP 107/68
[2017-12-06] MEDS: VANCOMYCIN 1 GM in IV D5W 250 ML IV SCH (14:22)
[2017-12-06 16:00] VITALS: BP 132/55
--- NOTE | 2017-12-06 19:30 | NUR ---
RN CLOSING NOTES PATIENT IN STABLE CONDITION. ALL NEEDS ATTENDED AND PROVIDED. TURNED AND REPOSITIONED PATIENT EVERY 2 HRS NEEDED. KEPT PATIENT SAFE AND COMFORTABLE. WOUND CARE DONE. BED IN LOW/LOCKED POSITION, SIDERAILS UPX2, HOB ELEVATED, CALL LIGHT IN REACH. ENDORSED TO NIGHT RN FOR YINA.
--- NOTE | 2017-12-06 19:35 | NUR ---
MS RN INITIAL NOTES, PATIENT IN BED , SLEEPING AT THIS TIME, BUT OPEN EYES WHEN CALL BY NAME, BREATHING EVEN AND UNLABORED, NO SOB/ACUTE DISTRESS NOTES AT THIS TIME, ON SIMPLE MASK AT 10LPM WITH O2 SATURATION AT 99% AT THIS TIME, NO S/S OF PAIN OR DISCOMFORT NOTED AT THIS TIME, RIGHT AC IV ACCESS PATENT AND INTACT AND IVF RUNNING WELL AND PATIENT TOLERATED WELL, GTF INFUSING WELL WITH NO RESIDUAL AT THIS TIME, FLUSH ORDERED, HOB ELEVATED AT ALL TIMES FOR ASPIRATION PRECAUTIONS, F/C DRAINING YELLOW COLOR URINE, PATENCY INTACT, ALL NEEDS PROVIDED AND ATTEMPTED, BED LOCKED AND IN LOWEST POSITION , KEPT DRY AND CLEAN AND WELL REPOSITIONED, CALL LIGHT W/I REACH, WILL CONTINUE TO MONITOR CLOSELY.
[2017-12-06 21:00] VITALS: BP 127/70
[2017-12-07] MEDS: BLOOD SUGAR DIAGNOSTIC 1 EACH STRIP IN SCH ×5 (00:41→23:23)
[2017-12-07] MEDS: MEROPENEM 1 G in IV NS 0.9% 100 ML IV SCH ×3 (00:42→23:22)
[2017-12-07] MEDS: INSULIN REGULAR, HUMAN 100 UNIT/ML 3 ML VIAL SQ PRN ×5 (00:48→23:24)
[2017-12-07] MEDS: GLUCERNA 1.2 1,000 ML BOTTLE GT PRN ×2 (02:49→19:41)
[2017-12-07 05:00] VITALS: BP 140/66
[2017-12-07 06:35] LABS: BASOPHILS % (AUTO) 0.3 % (0.0-2.0); EOSINOPHILS % (AUTO) 3.8 % (0.0-6.0); HEMATOCRIT 31 % (39-51); HEMOGLOBIN 10.2 g/dL (13.5-17.5); LYMPHOCYTES # (AUTO) 0.9 /CMM (0.8-4.8); LYMPHOCYTES % (AUTO) 14.4 % (20.0-44.0); MEAN CORPUSCULAR HGB CONC 33 g/dl (31.0-36.0); MEAN CORPUSCULAR VOLUME 91 fL (80-96); MONOCYTES # (AUTO) 0.2 /CMM (0.1-1.30); MONOCYTES % (AUTO) 3.2 % (2.0-12.0); NEUTROPHILS # (AUTO) 4.7 /CMM (1.8-8.9); NEUTROPHILS % (AUTO) 78.3 % (43.0-81.0); PLATELET COUNT (AUTO) 144 /CMM (150-450); RDW COEFFICIENT OF VARIATION 15.9 (11.5-15.0); RED BLOOD CELL COUNT(AUTO) 3.36 MIL/uL (4.5-6.0); WHITE BLOOD COUNT (AUTO) 5.9 K/uL (4.3-11.0)
--- NOTE | 2017-12-07 06:47 | NUR ---
MS RN CLOSING NOTES, PATIENT IN BED , SLEEPING AT THIS TIME, BUT EASILY TO AROUSE, , BREATHING EVEN AND UNLABORED, NO SOB/ACUTE DISTRESS NOTES AT THIS TIME, ON SIMPLE MASK AT 10LPM WITH O2 SATURATION AT 99-100% AT THIS TIME, NO S/S OF PAIN OR DISCOMFORT NOTED AT THIS TIME, RIGHT AC IV ACCESS PATENT AND INTACT AND IVF RUNNING WELL AND PATIENT TOLERATED WELL, GTF INFUSING WELL WITH NO RESIDUAL AT THIS TIME, FLUSH ORDERED, HOB ELEVATED AT ALL TIMES FOR ASPIRATION PRECAUTIONS, F/C DRAINING YELLOW COLOR URINE, PATENCY INTACT, ALL NEEDS PROVIDED AND ATTEMPTED, BED LOCKED AND IN LOWEST POSITION , KEPT DRY AND CLEAN AND WELL REPOSITIONED, CALL LIGHT W/I REACH, NO SIGNIFICANT CHANGE OF CONDITION THROUGH THE SHIFT, WILL ENDORSE CONTINUITY OF CARE TO ONCOMING NURSE.
[2017-12-07 06:58] LABS: CALCIUM, SERUM 7.9 mg/dL (8.5-10.1); CARBON DIOXIDE 26 mmol/L (21-32); CHLORIDE 116 mmol/L (98-107); GLUCOSE 125 mg/dL (74-106); POTASSIUM 4.5 mmol/L (3.5-5.1); SODIUM SERUM 149 mmol/L (136-145); UREA NITROGEN, BLOOD 22 mg/dL (7-18)
[2017-12-07 08:00] VITALS: BP 136/88
[2017-12-07] MEDS: VANCOMYCIN 1 GM in IV D5W 250 ML IV SCH (08:28)
[2017-12-07] MEDS: PANTOPRAZOLE 40 MG VIAL IV SCH (08:56)
[2017-12-07] MEDS: HEPARIN SODIUM, PORCINE 5000 UNITS/1 ML VIAL SQ SCH ×2 (08:58→21:09)
--- NOTE | 2017-12-07 11:10 | NUR ---
MS RN INITIAL NOTES: RECEIVED PT IN BED, SLEEPING. EASILY ARROUSABLE. RESPONSIVE TO VERBAL AND TACTILE STIMULI. GARCIA CATH IN PLACE, PATENT AND DRAINING YELLOW URINE, NO SEDIMENT OR FOUL ODOR NOTED. GT FEEDING CONNECTED ORDERED. PT TOLERATING WELL. NO RESIDUAL NOTED. IV IN RT. AC #20. ON O2 VIA SIMPLE MASK AT 10LPM. NO SOB NOTED. O2 SATURATION 100%. BED IN LOW, LOCKED POSITION. BED ALARM ON. WILL CONTINUE TO MONITOR PT.
[2017-12-07 16:00] VITALS: BP 134/56
[2017-12-07 16:03] VITALS: BP 134/56
--- NOTE | 2017-12-07 19:00 | NUR ---
M/S RN END OF SHIFT NOTES PT REMAINS IN BED, SLEEPING. O2 AT 10LPM VIA SIMPLE MASK, O2 SATURATION 100%. NO SOB NOTED. PT IN NO APPARENT DISTRESS. GT FEEDING CONNECTED ORDERED. IV IN R FA PATENT AND FLUSHES WELL. BED IN LOW, LOCKED POSITION. CALL LIGHT WITHIN REACH. WILL ENDORSE TO PM SHIFT NURSE FOR CONTINUITY OF CARE.
--- NOTE | 2017-12-07 19:30 | NUR ---
MS RN INITIAL NOTES, PATIENT IN BED , SLEEPING AT THIS TIME, BUT OPEN EYES WHEN CALL BY NAME, BREATHING EVEN AND UNLABORED, NO SOB/ACUTE DISTRESS NOTES AT THIS TIME, ON SIMPLE MASK AT 10LPM WITH O2 SATURATION AT 100% AT THIS TIME, NO S/S OF PAIN OR DISCOMFORT NOTED AT THIS TIME, RIGHT FA IV ACCESS PATENT AND INTACT AND IVF RUNNING WELL AND PATIENT TOLERATED WELL, GTF INFUSING WELL NO RESIDUAL AT THIS TIME, FLUSH ORDERED, HOB ELEVATED AT ALL TIMES FOR ASPIRATION PRECAUTIONS, F/C DRAINING YELLOW COLOR URINE, PATENCY INTACT, ALL NEEDS PROVIDED AND ATTEMPTED, BED LOCKED AND IN LOWEST POSITION , KEPT DRY AND CLEAN AND WELL REPOSITIONED, CALL LIGHT W/I REACH, WILL CONTINUE TO MONITOR CLOSELY.
[2017-12-07] MEDS: IV D5W 1,000 ML IV PRN (19:42)
[2017-12-07 20:00] VITALS: BP 122/55
[2017-12-07 21:00] VITALS: BP 122/55
[2017-12-08] MEDS: VANCOMYCIN 1 GM in IV D5W 250 ML IV SCH ×3 (01:09→19:59)
[2017-12-08 05:00] VITALS: BP 142/54
--- NOTE | 2017-12-08 06:07 | NUR ---
MS RN NOTES, PHOTO OF SACRUM WOUND S/P DEBRIDEMENT WITH MEASUREMENTS 2X1.5X0.4 TAKEN AND PLACED ON THE CHART, RED IN COLOR, WITH SCANT SEROUS EXUDATE, NO BLEEDING NOTED, NO S/S OF INFECTION NOTED AT THIS TIME, CLEANED ORDERED AND CHANGED DRESSING. WILL CONTINUE TO MONITOR CLOSELY.
[2017-12-08] MEDS: BLOOD SUGAR DIAGNOSTIC 1 EACH STRIP IN SCH ×3 (06:28→17:53)
[2017-12-08] MEDS: IV D5W 1,000 ML IV PRN (06:29)
[2017-12-08] MEDS: INSULIN REGULAR, HUMAN 100 UNIT/ML 3 ML VIAL SQ PRN ×2 (06:29→12:43)
[2017-12-08 06:54] LABS: CALCIUM, SERUM 7.6 mg/dL (8.5-10.1); CARBON DIOXIDE 25 mmol/L (21-32); CHLORIDE 111 mmol/L (98-107); CREATININE 0.9 mg/dL (0.6-1.3); GLUCOSE 151 mg/dL (74-106); POTASSIUM 4.2 mmol/L (3.5-5.1); SODIUM SERUM 143 mmol/L (136-145); UREA NITROGEN, BLOOD 21 mg/dL (7-18)
--- NOTE | 2017-12-08 06:56 | NUR ---
MS RN CLOSING NOTES, PATIENT IN BED , AWAKE AT THIS TIME, , BREATHING EVEN AND UNLABORED, NO SOB/ACUTE DISTRESS NOTES AT THIS TIME, ON VENTURI MASK AT 10LPM WITH O2 SATURATION AT 99-100% AT THIS TIME, NO S/S OF PAIN OR DISCOMFORT NOTED AT THIS TIME, RIGHT AC IV ACCESS PATENT AND INTACT AND IVF RUNNING WELL AND PATIENT TOLERATED WELL, GTF INFUSING WELL WITH NO RESIDUAL AT THIS TIME, FLUSH ORDERED, DRY AND CLEAN, S/P DEBRIDEMENT OF SACRUM WOUND, NO BLEEDING NOTED, STABLE THROUGHOUT THE NIGHT, HOB ELEVATED AT ALL TIMES FOR ASPIRATION PRECAUTIONS, F/C DRAINING YELLOW COLOR URINE, PATENCY INTACT, CALL LIGHT W/I REACH, WILL ENDORSE CONTINUITY OF CARE TO ONCOMING NURSE.
[2017-12-08 08:00] VITALS: BP 124/60
[2017-12-08] MEDS: HEPARIN SODIUM, PORCINE 5000 UNITS/1 ML VIAL SQ SCH ×2 (09:00→20:34)
[2017-12-08] MEDS: PANTOPRAZOLE 40 MG VIAL IV SCH (09:21)
[2017-12-08] MEDS: MEROPENEM 1 G in IV NS 0.9% 100 ML IV SCH (12:42)
--- NOTE | 2017-12-08 13:26 | NUR ---
MS RN NOTE: SPOKE WITH DR. MARIANO THAT PER FABIOLA'S REQUEST () SHE WANTED AN EYEDROP TO PREVENT DRY EYES ON THE PATIENT. MD AGREED WITH ORDER, NOTED AND ACKNOWLEDGED.
[2017-12-08] MEDS ORDERED: POLYVINYL ALCOHOL 15 ML BOTTLE EACHEYE PRN (13:30)
--- NOTE | 2017-12-08 14:07 | NUR ---
pod#1 s/p sacral wound debridement. Still on high flow O2 Venti mask 10L. Current dc plan is to [facility] [phone] once discharge. Addendum: 12/08/17 at 1407 by TIGRE VEGAS RN Amended: Links added.
[2017-12-08] MEDS: GLUCERNA 1.2 1,000 ML BOTTLE GT PRN (15:46)
[2017-12-08 16:00] VITALS: BP 117/63
--- NOTE | 2017-12-08 19:20 | NUR ---
MS RN INITIAL NOTES, PATIENT IN BED , SLEEPING AT THIS TIME, BUT OPEN EYES WHEN CALL BY NAME, BREATHING EVEN AND UNLABORED, NO SOB/ACUTE DISTRESS NOTES AT THIS TIME, ON VENTURI MASK AT 10LPM WITH O2 SATURATION AT 100% AT THIS TIME, NO S/S OF PAIN OR DISCOMFORT NOTED AT THIS TIME, LEFT AC IV ACCESS PATENT AND INTACT AND IVF RUNNING WELL AND PATIENT TOLERATED WELL, GTF INFUSING WELL WITH 5ML RESIDUAL AT THIS TIME, , FLUSH ORDERED, HOB ELEVATED AT ALL TIMES FOR ASPIRATION PRECAUTIONS, GARCIA CATHETER DRAINING YELLOW COLOR URINE, PATENCY INTACT, DRY AND CLEAN AND WELL REPOSITIONED AT THIS TIME, CALL LIGHT W/I REACH, ALL NEEDS PROVIDED, WILL CONTINUE TO MONITOR CLOSELY.
[2017-12-09] MEDS: MEROPENEM 1 G in IV NS 0.9% 100 ML IV SCH ×3 (00:06→23:52)
[2017-12-09] MEDS: INSULIN REGULAR, HUMAN 100 UNIT/ML 3 ML VIAL SQ PRN ×4 (01:00→21:42)
[2017-12-09 04:00] VITALS: BP 141/80
[2017-12-09] MEDS: GLUCERNA 1.2 1,000 ML BOTTLE GT PRN (05:10)
[2017-12-09 06:39] LABS: CARBON DIOXIDE 27 mmol/L (21-32); CHLORIDE 109 mmol/L (98-107); CREATININE 0.8 mg/dL (0.6-1.3); GLUCOSE 130 mg/dL (74-106); PHOSPHORUS 2.4 mg/dL (2.5-4.9); POTASSIUM 4.2 mmol/L (3.5-5.1); SODIUM SERUM 143 mmol/L (136-145); UREA NITROGEN, BLOOD 20 mg/dL (7-18)
--- NOTE | 2017-12-09 06:48 | NUR ---
MS RN CLOSING NOTES, PATIENT IN BED , SEEPING AT THIS TIME, BREATHING EVEN AND UNLABORED, NO SOB/ACUTE DISTRESS NOTES AT THIS TIME, ON VENTURI MASK AT 10LPM WITH O2 SATURATION AT 99-100% AT THIS TIME, NO S/S OF PAIN OR DISCOMFORT NOTED AT THIS TIME, RIGHT AC IV ACCESS PATENT AND INTACT AND IVF RUNNING WELL AND PATIENT TOLERATED WELL, GTF INFUSING WELL WITH NO RESIDUAL AT THIS TIME, FLUSH ORDERED, HOB ELEVATED AT ALL TIMES FOR ASPIRATION PRECAUTIONS, DRY AND CLEAN, STABLE CONDITION THROUGHOUT THE NIGHT, F/C DRAINING YELLOW COLOR URINE, PATENCY INTACT, CALL LIGHT W/I REACH, WILL ENDORSE CONTINUITY OF CARE TO ONCOMING NURSE.
[2017-12-09] MEDS: BLOOD SUGAR DIAGNOSTIC 1 EACH STRIP IN SCH ×5 (07:24→23:57)
[2017-12-09 07:33] LABS: BASOPHILS % (AUTO) 0.2 % (0.0-2.0); EOSINOPHILS % (AUTO) 2.5 % (0.0-6.0); HEMATOCRIT 28 % (39-51); HEMOGLOBIN 9.5 g/dL (13.5-17.5); LYMPHOCYTES # (AUTO) 0.4 /CMM (0.8-4.8); LYMPHOCYTES % (AUTO) 12.5 % (20.0-44.0); MEAN CORPUSCULAR HGB CONC 34 g/dl (31.0-36.0); MEAN CORPUSCULAR VOLUME 91 fL (80-96); MONOCYTES # (AUTO) 0.1 /CMM (0.1-1.30); NEUTROPHILS # (AUTO) 2.7 /CMM (1.8-8.9); NEUTROPHILS % (AUTO) 80.8 % (43.0-81.0); PLATELET COUNT (AUTO) 162 /CMM (150-450); RDW COEFFICIENT OF VARIATION 15.5 (11.5-15.0); RED BLOOD CELL COUNT(AUTO) 3.11 MIL/uL (4.5-6.0); WHITE BLOOD COUNT (AUTO) 3.3 K/uL (4.3-11.0)
[2017-12-09 08:00] VITALS: BP 137/56
[2017-12-09 08:08] VITALS: BP 137/56
[2017-12-09] MEDS: HEPARIN SODIUM, PORCINE 5000 UNITS/1 ML VIAL SQ SCH ×3 (09:00→21:33)
[2017-12-09] MEDS: PANTOPRAZOLE 40 MG VIAL IV SCH (09:20)
[2017-12-09] MEDS ORDERED: POTASSIUM PHOSPHATE MM 7.5 MMOL in IV D5W 100 ML IV SCH (12:00)
[2017-12-09 16:00] VITALS: BP 141/97
[2017-12-09] MEDS: VANCOMYCIN 1 GM in IV D5W 250 ML IV SCH (16:28)
--- NOTE | 2017-12-09 19:30 | NUR ---
RN/MS NOTES: RECEIVED PT. IN BED W/ HOB ELEVATED. A/O X 1 . CAN BY COMBATIVE AND CONFUSION. W/ GTF IN PLACE OF GLUCERNA @ 70 CC/HR W/ NO RESIDUAL NOTED. LAC G 20 W/ PATENT AND INTACT W/ NO S/S OF INFECTION/INFILTRATION NOTED. W/ F/C PATENT AND INTACT DRAINING VIA GRAVITY. NO FACIAL GRIMACE OR MOANING NOTED. WILL CONTINUE TO MONITOR.
[2017-12-09 20:01] VITALS: BP 123/55
[2017-12-09] MEDS: INSULIN GLARGINE, 100 UNIT/ML CARTRIDGE SQ SCH (21:35)
[2017-12-10] MEDS: INSULIN REGULAR, HUMAN 100 UNIT/ML 3 ML VIAL SQ PRN ×5 (00:05→23:39)
[2017-12-10] MEDS: GLUCERNA 1.2 1,000 ML BOTTLE GT PRN ×2 (00:11→18:56)
[2017-12-10 04:00] VITALS: BP 116/58
[2017-12-10] MEDS: BLOOD SUGAR DIAGNOSTIC 1 EACH STRIP IN SCH ×4 (05:32→23:36)
[2017-12-10 06:20] LABS: BASOPHILS % (AUTO) 0.2 % (0.0-2.0); EOSINOPHILS % (AUTO) 2.7 % (0.0-6.0); HEMATOCRIT 28 % (39-51); HEMOGLOBIN 9.6 g/dL (13.5-17.5); LYMPHOCYTES # (AUTO) 0.8 /CMM (0.8-4.8); LYMPHOCYTES % (AUTO) 14.8 % (20.0-44.0); MEAN CORPUSCULAR HGB CONC 34 g/dl (31.0-36.0); MEAN CORPUSCULAR VOLUME 90 fL (80-96); MONOCYTES # (AUTO) 0.2 /CMM (0.1-1.30); MONOCYTES % (AUTO) 3.7 % (2.0-12.0); NEUTROPHILS # (AUTO) 4.2 /CMM (1.8-8.9); NEUTROPHILS % (AUTO) 78.6 % (43.0-81.0); PLATELET COUNT (AUTO) 166 /CMM (150-450); RED BLOOD CELL COUNT(AUTO) 3.15 MIL/uL (4.5-6.0); WHITE BLOOD COUNT (AUTO) 5.4 K/uL (4.3-11.0)
[2017-12-10 06:38] LABS: CALCIUM, SERUM 8.2 mg/dL (8.5-10.1); CARBON DIOXIDE 28 mmol/L (21-32); CHLORIDE 110 mmol/L (98-107); CREATININE 0.8 mg/dL (0.6-1.3); GLUCOSE 124 mg/dL (74-106); MAGNESIUM 2.1 mg/dL (1.8-2.4); PHOSPHORUS 2.4 mg/dL (2.5-4.9); POTASSIUM 4.1 mmol/L (3.5-5.1); SODIUM SERUM 143 mmol/L (136-145); UREA NITROGEN, BLOOD 20 mg/dL (7-18)
--- NOTE | 2017-12-10 07:21 | NUR ---
MS RN OPENING NOTES RECEIVED PATIENT IN STABLE CONDITION. IN NO APPARENT DISTRESS. BEDSIDE RAILS ARE UPX2. BED IS LOCKED AND LOWERED. CALL LIGHT IS WITHIN REACH. IV LINE IS INTACT AND PATENT. WILL CONTINUE TO MONITOR.
--- NOTE | 2017-12-10 07:21 | NUR ---
RN/MS NOTES: NO ACUTE CHANGES NOTED DURING SHIFT. REPORT GIVEN TO AM NURSE FOR YINA.
[2017-12-10] MEDS: VANCOMYCIN 1 GM in IV D5W 250 ML IV SCH (07:59)
[2017-12-10 08:00] VITALS: BP 132/59
[2017-12-10] MEDS: PANTOPRAZOLE 40 MG VIAL IV SCH (08:04)
[2017-12-10] MEDS: HEPARIN SODIUM, PORCINE 5000 UNITS/1 ML VIAL SQ SCH ×2 (08:11→21:41)
--- NOTE | 2017-12-10 08:50 | NUR ---
CALLED PHARMACY TO PROVIDE HYDROGEL THE PATIENT HAS RUN OUT. PHARMACY WILL PROVIDE.
[2017-12-10] MEDS: HYDROGEL DRESSING 90 GM TUBE TP SCH (09:00)
--- NOTE | 2017-12-10 09:50 | NUR ---
RN NOTES\ HYDROGEL NOT AVAILABLE.
[2017-12-10] MEDS ORDERED: POTASSIUM PHOSPHATE MM 15 MMOL in IV D5W 250 ML IV SCH (10:00)
[2017-12-10] MEDS: POTASSIUM PHOSPHATE MM 7.5 MMOL in IV D5W 100 ML IV SCH ×2 (10:18→14:13)
--- NOTE | 2017-12-10 13:03 | NUR ---
MERREM AND 2ND BAG OF POTASSIUM PHOSPHATE WILL BE GIVEN 30 MINUTES LATE DUE TO FIRST BAG OF POTASSIUM PHOSPHATE RUNNING.
[2017-12-10] MEDS: MEROPENEM 1 G in IV NS 0.9% 100 ML IV SCH ×2 (13:41→23:23)
[2017-12-10 16:00] VITALS: BP 130/64
--- NOTE | 2017-12-10 18:30 | NUR ---
MS RN CLOSING NOTES PATIENT IS IN STABLE CONDITION. IN NO APPARENT DISTRESS. BEDSIDE RAILS ARE UPX2. BED IS LOCKED AND LOWERED. TUBE FEEDING IS RUNNING. IV LINE IS INTACT AND PATENT. WILL ENDORSE CARE TO ROCK WORKER NURSE FOR YINA. ALL NEEDS WERE MET.
[2017-12-10 20:00] VITALS: BP 138/72
[2017-12-10] MEDS: INSULIN GLARGINE, 100 UNIT/ML CARTRIDGE SQ SCH (21:40)
[2017-12-11] MEDS: VANCOMYCIN 1 GM in IV D5W 250 ML IV SCH (01:52)
[2017-12-11 04:00] VITALS: BP 138/69
[2017-12-11] MEDS: BLOOD SUGAR DIAGNOSTIC 1 EACH STRIP IN SCH ×4 (05:24→23:08)
[2017-12-11] MEDS: INSULIN REGULAR, HUMAN 100 UNIT/ML 3 ML VIAL SQ PRN ×3 (05:26→23:15)
[2017-12-11 07:05] LABS: BASOPHILS % (AUTO) 0.3 % (0.0-2.0); EOSINOPHILS % (AUTO) 2.8 % (0.0-6.0); HEMATOCRIT 30 % (39-51); HEMOGLOBIN 9.7 g/dL (13.5-17.5); LYMPHOCYTES # (AUTO) 0.8 /CMM (0.8-4.8); LYMPHOCYTES % (AUTO) 17.9 % (20.0-44.0); MEAN CORPUSCULAR HGB CONC 33 g/dl (31.0-36.0); MEAN CORPUSCULAR VOLUME 93 fL (80-96); MONOCYTES # (AUTO) 0.2 /CMM (0.1-1.30); MONOCYTES % (AUTO) 4.9 % (2.0-12.0); NEUTROPHILS # (AUTO) 3.5 /CMM (1.8-8.9); NEUTROPHILS % (AUTO) 74.1 % (43.0-81.0); PLATELET COUNT (AUTO) 186 /CMM (150-450); RED BLOOD CELL COUNT(AUTO) 3.16 MIL/uL (4.5-6.0); WHITE BLOOD COUNT (AUTO) 4.7 K/uL (4.3-11.0)
--- NOTE | 2017-12-11 07:39 | NUR ---
RN/MS NOTES: NO ACUTE CHANGES NOTED DURING THIS SHIFT. REPORT GIVEN TO AM NURSE FOR YINA.
[2017-12-11 07:43] LABS: CALCIUM, SERUM 8.1 mg/dL (8.5-10.1); CARBON DIOXIDE 23 mmol/L (21-32); CHLORIDE 108 mmol/L (98-107); CREATININE 0.8 mg/dL (0.6-1.3); GLUCOSE 114 mg/dL (74-106); MAGNESIUM 1.9 mg/dL (1.8-2.4); PHOSPHORUS 3.1 mg/dL (2.5-4.9); POTASSIUM 4.2 mmol/L (3.5-5.1); SODIUM SERUM 141 mmol/L (136-145); UREA NITROGEN, BLOOD 23 mg/dL (7-18)
--- NOTE | 2017-12-11 07:45 | NUR ---
RECEIVED BEDSIDE REPORT. WILL CONTINUE TO MONITOR.
[2017-12-11 08:00] VITALS: BP_SYST 140; BP_SYST 141; BP_DIAS 64; BP_DIAS 67
[2017-12-11] MEDS: PANTOPRAZOLE 40 MG VIAL IV SCH (09:18)
[2017-12-11] MEDS: HYDROGEL DRESSING 90 GM TUBE TP SCH (11:20)
[2017-12-11] MEDS: MEROPENEM 1 G in IV NS 0.9% 100 ML IV SCH (12:37)
--- NOTE | 2017-12-11 13:00 | NUR ---
INFILTRATE NOTED ON LEFT FOREARM IV. FOREARM APPEARS EDEMATOUS. PATIENT WAS RECEIVING 5ML/HR TKO. IV STOPPED. IV CATHETER REMOVED WITH THE TIP INTACT. COLD PACK APPLIED. PATIENT TOLERATED PROCEDURE WELL. PICTURES TAKEN AND PLACED INTO THE CHART. CHARGE NURSE INFORMED.
--- NOTE | 2017-12-11 13:20 | NUR ---
rn attempted to insert a new iv unsuccessfully using the AccuVein. Differed to ICU nurse.
--- NOTE | 2017-12-11 14:44 | NUR ---
ICU nurse Eliza Castro attempted to insert a peripheral line. On second attempt was able to insert 24 G on L/hand. IV flushed. Patency verified. Charge nurse Reyna obtained an order from Dr. Bates for Midline for Vanco administration. Awaiting the midline nurse.
[2017-12-11 16:00] VITALS: BP 156/73
--- NOTE | 2017-12-11 19:13 | NUR ---
MS RN CLOSING NOTE PATIENT IS A/O X1, CONFUSED. AWAKE AND RESPONSIVE IN BED. BED IS LOCKED IN LOWEST POSITION, SIDE RAILS UP X3, BED ALARM IS ON. PATIENT IN HIGH ELIZABETH'S POSITION. CHEST IS RISING EQUALLY BILATERALLY. SPO2 98% ON ROOM AIR. NO S/S OF PAIN/DISCOMFORT AT THIS TIME. NURSING CARE RENDERED. CALL LIGHT WITHIN REACH. ALL NEEDS ARE MET. WILL ENDORSE TO THE ASSEMBLER FINAL NURSE FOR YINA.
[2017-12-11 20:00] VITALS: BP 136/77
[2017-12-11] MEDS: HYDROCODONE/APAP 5/325MG 1 EACH TABLET PO PRN (23:08)
[2017-12-11] MEDS: INSULIN GLARGINE, 100 UNIT/ML CARTRIDGE SQ SCH (23:15)
[2017-12-12] MEDS: MEROPENEM 1 G in IV NS 0.9% 100 ML IV SCH ×3 (00:14→23:38)
[2017-12-12 04:00] VITALS: BP 116/62
[2017-12-12] MEDS: GLUCERNA 1.2 1,000 ML BOTTLE GT PRN ×2 (05:08→21:10)
[2017-12-12] MEDS: BLOOD SUGAR DIAGNOSTIC 1 EACH STRIP IN SCH ×4 (05:08→23:06)
[2017-12-12] MEDS: HYDROCODONE/APAP 5/325MG 1 EACH TABLET PO PRN ×2 (05:09→21:10)
[2017-12-12 07:22] LABS: CALCIUM, SERUM 8.5 mg/dL (8.5-10.1); CARBON DIOXIDE 27 mmol/L (21-32); CHLORIDE 109 mmol/L (98-107); GLUCOSE 125 mg/dL (74-106); POTASSIUM 4.3 mmol/L (3.5-5.1); SODIUM SERUM 143 mmol/L (136-145); UREA NITROGEN, BLOOD 24 mg/dL (7-18)
--- NOTE | 2017-12-12 07:30 | NUR ---
RN MS NOTES PT IN BED, ASLEEP, EASY TO AROUSE, ALERT TO SELF, NO SIGN OF PAIN, NOT IN DISTRESS, GT FEEDING INFUSING WELL, CALL LIGHT WITHIN REACH, KEPT COMFORTABLE IN BED.
[2017-12-12 08:00] VITALS: BP 149/71
[2017-12-12] MEDS: PANTOPRAZOLE 40 MG VIAL IV SCH (08:13)
[2017-12-12] MEDS: HYDROGEL DRESSING 90 GM TUBE TP SCH (08:14)
[2017-12-12 08:37] VITALS: BP 149/71
[2017-12-12] MEDS: INSULIN REGULAR, HUMAN 100 UNIT/ML 3 ML VIAL SQ PRN ×2 (11:25→17:08)
--- NOTE | 2017-12-12 11:50 | NUR ---
RN MS NOTES PT IN BED, AWAKE, ALERT TO SELF, WITH CONFUSION, NO SIGN OF PAIN, RESPIRATIONS NORMAL, GT FEEDING INFUSING WELL, CALL LIGHT WITHIN REACH, F/C DRAINING WELL, TURNED AND REPOSITIONED Q2 HOURS, ISOLATION PRECAUTIONS OBSERVED.
[2017-12-12] MEDS: VANCOMYCIN 0.75 GM in IV NS 0.9% 250 ML IV SCH (13:36)
[2017-12-12 16:01] VITALS: BP 134/66
--- NOTE | 2017-12-12 18:28 | NUR ---
RN MS NOTES PT IN BED, AWAKE, ALERT TO SELF, WITH CONFUSION, NO RISK TAKING BEHAVIOR NOTED, GT FEEDING INFUSING WELL, F/C DRAINING WELL WITH CLEAR, YELLOW URINE, SKIN TREATMENTS AND DRESSING CHANGE DONE, TURNED AND REPOSITIONED, KEPT TOOL PUSHER BED, VISITED, INFORMED OF CURRENT PLAN OF CARE, VERBALIZED UNDERSTANDING.
[2017-12-12 20:00] VITALS: BP 122/67
[2017-12-12] MEDS: INSULIN GLARGINE, 100 UNIT/ML CARTRIDGE SQ SCH (23:11)
[2017-12-13 04:00] VITALS: BP 135/61
[2017-12-13] MEDS: BLOOD SUGAR DIAGNOSTIC 1 EACH STRIP IN SCH ×2 (05:20→11:31)
[2017-12-13] MEDS: HYDROCODONE/APAP 5/325MG 1 EACH TABLET PO PRN (05:21)
[2017-12-13] MEDS: INSULIN REGULAR, HUMAN 100 UNIT/ML 3 ML VIAL SQ PRN ×2 (05:30→12:08)
[2017-12-13 06:14] LABS: CALCIUM, SERUM 8.7 mg/dL (8.5-10.1); CARBON DIOXIDE 29 mmol/L (21-32); CHLORIDE 110 mmol/L (98-107); CREATININE 0.9 mg/dL (0.6-1.3); GLUCOSE 148 mg/dL (74-106); MAGNESIUM 2.2 mg/dL (1.8-2.4); PHOSPHORUS 2.8 mg/dL (2.5-4.9); POTASSIUM 4.6 mmol/L (3.5-5.1); SODIUM SERUM 144 mmol/L (136-145); UREA NITROGEN, BLOOD 26 mg/dL (7-18)
[2017-12-13 06:24] LABS: BASOPHILS % (AUTO) 0.2 % (0.0-2.0); EOSINOPHILS % (AUTO) 3.7 % (0.0-6.0); HEMATOCRIT 33 % (39-51); HEMOGLOBIN 10.8 g/dL (13.5-17.5); LYMPHOCYTES # (AUTO) 0.8 /CMM (0.8-4.8); LYMPHOCYTES % (AUTO) 15.3 % (20.0-44.0); MEAN CORPUSCULAR HGB CONC 32 g/dl (31.0-36.0); MEAN CORPUSCULAR VOLUME 94 fL (80-96); MONOCYTES # (AUTO) 0.3 /CMM (0.1-1.30); MONOCYTES % (AUTO) 5.1 % (2.0-12.0); NEUTROPHILS # (AUTO) 3.7 /CMM (1.8-8.9); NEUTROPHILS % (AUTO) 75.7 % (43.0-81.0); PLATELET COUNT (AUTO) 172 /CMM (150-450); RDW COEFFICIENT OF VARIATION 16.5 (11.5-15.0); RED BLOOD CELL COUNT(AUTO) 3.54 MIL/uL (4.5-6.0); WHITE BLOOD COUNT (AUTO) 4.9 K/uL (4.3-11.0)
--- NOTE | 2017-12-13 07:45 | NUR ---
MS RN OPENING NOTE PATIENT IS RESTING IN BED COMFORTABLY AT THIS TIME. ALERT AND ORIENTED x1. NO FACIAL GRIMACING NOTED FOR PAIN. NO SOB OR DISTRESS NOTED, CALL LIGHT WITHIN REACH AND SAFETY MEASURES IMPLEMENTED. G-TUBE SITE CLEAN AND INTACT, TUBE FEEDING RUNNING AT 70 ML/HR TOLERATING WELL. BLOOD SUGAR TO BE MONITORED THROUGHOUT SHIFT. WOUND TREATMENT TO BE DONE. GARCIA CATHETER DRAINING WELL TO GRAVITY, CLEAR AND YELLOW WITH VERY LITTLE SEDIMENT NOTED, TO INFORM MD. WILL CONTINUE TO MONITOR THROUGHOUT SHIFT
--- NOTE | 2017-12-13 08:13 | NUR ---
MS RN NOTE PER PHARMACY OKAY TO GIVE VANCO IV, TROUGH WILL BE DONE AFTER THIS DOSE.
[2017-12-13] MEDS: VANCOMYCIN 0.75 GM in IV NS 0.9% 250 ML IV SCH (08:17)
[2017-12-13] MEDS: PANTOPRAZOLE 40 MG VIAL IV SCH (08:17)
[2017-12-13] MEDS: HYDROGEL DRESSING 90 GM TUBE TP SCH (08:18)
--- NOTE | 2017-12-13 09:33 | NUR ---
MS RN NOTE PATIENT MOVED FROM ROOM 109 TO 117-2.
[2017-12-13] MEDS: MEROPENEM 1 G in IV NS 0.9% 100 ML IV SCH (11:31)
--- NOTE | 2017-12-13 11:54 | NUR ---
MS RN NOTE BLOOD [id number]-[id number] INSULIN TO BE GIVEN
[2017-12-13 12:35] VITALS: BP 102/59
--- NOTE | 2017-12-13 12:38 | NUR ---
MS RN NOTE PER MD TO REMOVE GARCIA PRIOR TO DISCHARGE. ORDERS NOTED AND CARRIED OUT.
--- NOTE | 2017-12-13 16:50 | NUR ---
MS DOCK ATTENDANT NOTE REPORT GIVEN TO [facility], ZEFERINO RN QUALITY CONTROL REPRESENTATIVE. PATIENT IS ALERT AND ORIENTED x1, CONFUSED. ALL DUE MEDICATIONS GIVEN ORDERED. ALL NURSING CARE NEEDS ATTENDED TO NEEDED. TURNED AND REPOSITIONED Q2H AND NEEDED. IV REMOVED, SKIN INTACT. ALL SKINISSUES DOCUMENTED PRIOR TO DISCHARGE. WOUND TREATMENT CHANGED ON SHIFT PRIOR TO DISCHARGE. PER RN QUALITY CONTROL REPRESENTATIVE SPOKE WITH PATIENT'S PCP, TO KEEP GARCIA IN PLACE. CHARGE NURSE AWARE. ALL DISCHARGE INSTRUCTIONS GIVEN TO RN QUALITY CONTROL REPRESENTATIVE AT [facility], ALL INSTRUCTIONS REPEATED BACK. G-TUBE SITE CLEAN AND INTACT, NO REDNESS. NO BELONGINGS AT DISCHARGE. INFORMED AND SON OF DISCHARGE PLANNING BACK TO FACILITY. LEFT VIA AMBULANCE
== END 2017-12-13 16:38 | DRG 853 ==
LOC: ER 22:27 → TELE-TD 12-04 00:32 → MEDSG1 12-04 10:08
PROVIDERS: ADMIT Hospitalist; ATTEND Hospitalist
PROC: 0JB70ZZ Excision of Back Subcutaneous Tissue and Fascia, Open Approach (ICD-10-PCS; principal; 2017-12-07)
DX: A41.9 Sepsis, unspecified organism (principal); I21.A1 Myocardial infarction type 2; N17.0 Acute kidney failure with tubular necrosis; G93.41 Metabolic encephalopathy; J18.9 Pneumonia, unspecified organism; L89.153 Pressure ulcer of sacral region, stage 3; R53.2 Functional quadriplegia; J96.01 Acute respiratory failure with hypoxia; E87.0 Hyperosmolality and hypernatremia; E87.4 Mixed disorder of acid-base balance; N39.0 Urinary tract infection, site not specified; E11.22 Type 2 diabetes mellitus with diabetic chronic kidney disease; Z93.1 Gastrostomy status; R65.20 Severe sepsis without septic shock; I12.9 Hypertensive chronic kidney disease with stage 1 through stage 4 chronic kidney disease, or unspecified chronic kidney disease; D63.8 Anemia in other chronic diseases classified elsewhere; E78.5 Hyperlipidemia, unspecified; R13.10 Dysphagia, unspecified; Z66 Do not resuscitate; N18.9 Chronic kidney disease, unspecified; K21.9 Gastro-esophageal reflux disease without esophagitis; Z88.0 Allergy status to penicillin; E86.0 Dehydration; L89.322 Pressure ulcer of left buttock, stage 2; L98.8 Other specified disorders of the skin and subcutaneous tissue; F03.90 Unspecified dementia, unspecified severity, without behavioral disturbance, psychotic disturbance, mood disturbance, and anxiety; L89.890 Pressure ulcer of other site, unstageable; E11.65 Type 2 diabetes mellitus with hyperglycemia; B96.5 Pseudomonas (aeruginosa) (mallei) (pseudomallei) as the cause of diseases classified elsewhere; B95.62 Methicillin resistant Staphylococcus aureus infection as the cause of diseases classified elsewhere; D69.2 Other nonthrombocytopenic purpura; S90.414A Abrasion, right lesser toe(s), initial encounter; X58.XXXA Exposure to other specified factors, initial encounter; Y93.9 Activity, unspecified; Y92.129 Unspecified place in nursing home as the place of occurrence of the external cause; F09 Unspecified mental disorder due to known physiological condition; Z86.73 Personal history of transient ischemic attack (TIA), and cerebral infarction without residual deficits; Z79.4 Long term (current) use of insulin
CPT/HCPCS: 31720; 36415; 36600; 70450-TC; 71045-TC; 80048-TC; 80053-TC; 80061-TC; 80076-TC; 80202-TC; 81000-TC; 82728-TC; 82803-TC; 82945-TC; 82962-TC; 83540-TC; 83605-TC; 83735-TC; 83935-TC; 84100-TC; 84300-TC; 84443-TC; 84484-TC; 85025-TC; 85027-TC; 85730-TC; 86706; 86803; 87040-TC; 87070-TC; 87081-TC; 87086-TC; 87186-TC; A4216; A4606; A6248; A6402; A6403; C9113; J1644; J1815; J2185; J3370; J3490; J7030; J7040; J7050; J7060; J7070; Z7610